=== PATIENT | female | born 1995 | race Caucasian/White ===

== ENCOUNTER 2020-04-28 07:52 | Outpatient (REF) | payer OTHER, MEDICAID, SELFPAY ==
[2020-04-28 08:52] LABS: COVID-19 Test Negative (Negative)
== END 2020-04-28 07:53 | disposition home or self-care (01) ==
LOC: HO.LAB 07:52
PROVIDERS: PCP Physician Assistant; Visit Provider Internal Medicine
DX: Z20.828 Contact with and (suspected) exposure to other viral communicable diseases (principal)
CPT/HCPCS: 87635; C9803

== ENCOUNTER 2022-02-23 10:04 | Outpatient (REF) | payer OTHER, SELFPAY ==
[2022-02-23 11:33] LABS: Hematocrit 43.8 % (37.0-47.0); Hemoglobin 14.2 g/dl (12.0-16.0); Mean Corpuscular HGB Conc 32.4 g/dl (31.0-35.0); Mean Corpuscular Hemoglobin 29.2 pg (27.0-33.0); Mean Corpuscular Volume 90.1 fL (80.0-98.0); Mean Platelet Volume 9.8 fL (9.4-12.3); Platelet Count 334 X10*3/uL (160-400); Red Blood Count 4.86 X10*6/uL (4.20-5.50); White Blood Count 9.2 X10*3/uL (4.8-10.8)
[2022-02-23 12:15] LABS: Alanine Aminotransferase 9 U/L (0-31); Albumin Level 4.3 g/dL (3.5-5.0); Alkaline Phosphatase 96 U/L (39-117); Anion Gap 14 (12-20); Aspartate Amino Transferase 13 U/L (5-31); Bilirubin Total 0.5 mg/dL (0.0-1.0); Blood Urea Nitrogen 9 mg/dL (9-16); Calcium 9.3 mg/dL (8.4-10.2); Carbon Dioxide 25 mmol/L (22-29); Chloride 105 mmol/L (96-108); Cholesterol 174 mg/dL; Estimated Glomerular Filt Rate > 60; Glucose Fasting 78 mg/dL (60-99); HDL Cholesterol 49 mg/dL; LDL Cholesterol Calculated 113 mg/dl; Potassium 3.9 mmol/L (3.3-5.1); Sodium 140 mmol/L (135-145); Total Protein 7.4 g/dL (6.5-8.0); Triglycerides 61 mg/dL
[2022-02-28 22:16] LABS: TS Negative Control Passed; TS Panel A 1; TS Panel B 0; TS Positive Control Passed; TSpotTB Negative (Negative)
== END 2022-02-23 10:05 | disposition home or self-care (01) ==
LOC: HO.WFDLDS 10:04
PROVIDERS: Visit Provider Hospitalist
DX: Z00.00 Encounter for general adult medical examination without abnormal findings (principal); Z11.1 Encounter for screening for respiratory tuberculosis
CPT/HCPCS: 36415; 80053; 80061; 84443; 85027; 86481; 86787

== ENCOUNTER 2023-04-26 07:47 | Outpatient (AMB) | payer OTHER, MEDICAID, SELFPAY ==
[2023-04-26 07:52] VITALS: BP 102/62; PULSE 75; O2SAT 98; BMI 23.6
--- NOTE | 2023-04-26 07:52 | A.OFFPC_ITS ---
Vital Signs 04/26/23 07:52 Height 5 ft 8 in Weight 155 lb BMI 23.6 BP 102/62 Blood Pressure Location Lt brachial Position Sitting Pulse 75 Pulse Source Pulse Oximeter Pulse Oximetry (%) 98 Oxygen Delivery Method Room Air Intake Visit Reasons: transfer care back to [facility] Allergies No Known Allergies Allergy (Verified 04/26/23 08:08) Medication List - Last Reconciled 04/26/23 by Fredrick Padilla PA-C No Known Home Meds Tobacco use date assessed: 04/26/23 Dental Screening Dental Screen Date: 04/26/23 Did you have a dental visit in the last 12 months?: Yes Did you have a dental problem in the last 6 months where you did not have access to dental care?: No Was dental information given to patient?: Patient has dentist HPI transfer care back to [facility] HPI Details Patient is a 27 year female here today for a transfer care visit. Patient has a past medical history significant for occasional migraines. Concern--> no concerns today- does mention constipation which has been existing chronic issue. 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 She did a baby in 2020 [facility] Surgical History No pertinent past surgical history Family History Father No problems noted. 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 1. Little interest or pleasure in doing things: not at all 2. Feeling down, depressed, or hopeless: not at all 3. Trouble falling or staying asleep, or sleeping too much: not at all 4. Feeling tired or having little energy: not at all 5. Poor appetite or overeating: not at all 6. Feeling bad about yourself - or that you are a failure or have let yourself or your family down: not at all 7. Trouble concentrating on things, such as reading the newspaper or watching television: not at all 8. Moving or speaking so slowly that other people could have noticed. Or the opposite - being so fidgety or restless that you have been moving around a lot more than usual: not at all 9. Thoughts that you would be better off or of hurting yourself in some way: not at all Total score: 0 Depression Screening Interpretation: Negative Depression Screening Done: Yes 69579 - PHQ-9 Billing: Yes Source: Developed by Drs. Kelechi Ibrahim, Maya Fritz, Kennedy Sue and colleagues, with an educational africa from [employer]. Thrive Questionnaire Date Thrive assessed: 04/26/23 I am a: Patient What is your living situation today?: I have a steady place to live Within the past 12 months, did the food you bought not last and you didn't have the money to get more?: Never true Within the past 12 months, did you worry whether your food would run out before you got money to buy more?: Never true Do you have trouble paying for medicines?: No Do you have trouble getting transportation to medical appointments?: No Do you have trouble paying your heating and electricity bill?: No Do you have trouble taking care of your child, family member or friend?: No Do you have trouble with day-to-day activities such as bathing, preparing meals, shopping, managing finances, etc.?: No Are you currently unemployed and looking for a job?: No Are you interested in more education?: No Currently or been in a relationship where the following occur: no concerns reported AUDIT C Alcohol Use Questionnaire (AUDIT-C) 1. How often do you have a drink containing alcohol?: 2-4 times a month 2. How many drinks containing alcohol do you have on a typical day when you are drinking?: 3 or 4 3. How often do you have six or more drinks on one occasion?: Never Total Score: 3 EMILEE-7 AMB Questionnaire EMILEE-7 Date EMILEE - 7 assessed: 04/26/23 Feeling nervous, anxious, or on edge: 3 = Nearly every day Not being able to stop or control worryin = Nearly every day Worrying too much about different things: 3 = Nearly every day Trouble relaxin = Several days Being so restless that it is hard to sit still: 0 = Not at all Becoming easily annoyed or irritable: 0 = Not at all Feeling afraid as if something awful might happen: 1 = Several days Total EMILEE-7 score (0-4 normal; 5-9 mild; 10-14 moderate; 15-21 severe): 11 Source: Developed by Drs. Kelechi Ibrahim, Maya Fritz, Kennedy Sue and colleagues, with an educational africa from [employer]. EMILEE-7 Assessment Billing EMILEE-7 Assessment Tool: EMILEE-7 Assessment 35391 Review of Systems Const Denies headache(s) Eyes Denies loss of vision ENT Denies vertigo, Denies dizziness, Denies headache(s) and Denies sore throat Card Denies chest pain, Denies leg edema and Denies lightheadedness Resp Denies cough, Denies hemoptysis and Denies wheezing GI Denies abdominal pain, Denies melena, Denies constipation, Denies diarrhea and Denies vomiting Denies urinary frequency, Denies dysuria and Denies urinary urgency Musc Denies arthralgias, Denies joint swelling, Denies numbness and Denies tingling Neuro Denies Abnormal speech present, Denies behavioral changes, Denies vertigo, Denies dizziness, Denies headache(s), Denies loss of vision, Denies memory loss, Denies numbness and Denies tingling Psych Denies anxiety, Denies behavioral changes, Denies depression, Denies memory loss and Denies panic attacks Royal/Lymph Denies easy bleeding and Denies easy bruising Aller/Immun Denies wheezing Physical exam (Primary Care) Vital Signs: Last Vital Signs Pulse 75 04/26/23 07:52 BP 102/62 04/26/23 07:52 Pulse Ox 98 04/26/23 07:52 Oxygen Delivery Method Room Air 04/26/23 07:52 BMI result Body Mass Index 23.6 Tobacco/Smoking Status: Tobacco use Status Tobacco use date assessed 04/26/23 04/26/23 08:03 Patient Tobacco Use Status Never used Tobacco 04/26/23 08:03 e-Cigarette/Vaping Use Never Used 04/26/23 08:03 PHQ-9: PHQ-9 Score PHQ-9: Total score 0 04/26/23 08:03 Depression Screening Interpretation: Negative Thrive Assessment: Date of Thrive Assessment Date Thrive assessed 04/26/23 04/26/23 08:03 Currently or been in a relationship where the following occur: no concerns reported Const General: healthy appearing, no acute distress, alert and awake Nutritional Appearance: well nourished Orientation/consciousness: oriented to person, oriented to place and oriented to time HENMT Ears: TM's normal bilaterally General nose exam: Normal nasal mucous membranes and turbinates present Eyes Conjunctivae: conjunctivae normal Sclerae: sclerae normal Pupils: Equal, round and reactive pupils present Neck Neck: Yes no lymphadenopathy and Yes no JVD Thyroid: Thyroid normal Carotids: no bruits Resp Effort & Inspection: normal respiratory effort and not tachypneic Auscultation: no crackles, no rales, no rhonchi and no wheezes Cardio Rate: regular rate Rhythm: regular rhythm Heart sounds: no murmurs and normal S1 and S2 GI Palpation (GI): Soft to palpation, nontender, no hepatomegaly and no splenomegaly Auscultation: normal bowel sounds Skin General skin exam: no rashes or lesions noted and dry skin Neuro General: oriented to person, oriented to place and oriented to time Cranial nerves: Yes Equal, round and reactive pupils present Speech: No Abnormal speech present Gait exam (Neuro): Normal gait present Motor exam (neuro): no tremor noted Extrem Right upper extremity: full ROM Left upper extremity: full ROM Right lower extremity: full ROM; no edema Left lower extremity: full ROM; no edema Psych Mental Status: mental status grossly normal Speech and movement: Normal speech and movement present Affect: normal affect Attitude: cooperative Thought process: Normal thought process present Office Procedures Flu Questionnaire Does the patient have a severe egg allergy?: No Does the patient have severe life threatening allergies?: No Does the patient have a fever or illness today?: No Has the patient ever had Guillain-[place] Syndrome?: No Has the patient ever had any past reaction to a flu shot?: No Immunizations flu vacc [id number] 6mos up(PF) 60 mcg(15 mcgx4)/0.5 mL IM syringe Performing Provider: Fredrick Padilla PA-C [facility] Administered by: Miryam Spencer CMA on 04/26/23 08:05 Dose Route Admin Location Dispensed Lot Number Expiration Date NDC Bowling Ball Marker 0.5 mL IM Left Deltoid 0.5 mL [id number] 12/17/23 [id number] [employer] VIS Given Date VIS Provided VIS Publication Date 04/26/23 Single Vaccine 21 Eligibility Eligibility Date Funding Source Not VFC Eligible 04/26/23 Private Assessment and Plan Assessment & Plan (1) Constipation: Code(s): K59.00 - Constipation, unspecified Qualifiers: Constipation type: other constipation type Qualified Code(s): K59.09 - Other constipation Plan: Does report she chronically suffers with constipation. Advised on increasing her fluids and fiber in her diet and she understands. [place] her prescription stool softener laxatives though she declines at this time. (2) Screening for diabetes mellitus (DM): Code(s): Z13.1 - Encounter for screening for diabetes mellitus (3) EMILEE (generalized anxiety disorder): Code(s): F41.1 - Generalized anxiety disorder Plan: Patient's EMILEE-7 score positive moderate anxiety . She is interested in starting medication on a daily basis to help reduce her anxiety. Not interested in mental health therapy at this time. Also having trouble sleeping thus she is willing to try hydroxyzine on an as-needed basis. Orders: Orders Influenza [id number] Immunization Today Z23 - Encounter for immunization Comprehensive [place]. Panel Fast Today Z13.1 - Encounter for screening for diabetes mellitus Complete Blood Count no Diff Today R51.9 - Headache, unspecified Medications: New hydroxyzine HCl 10 mg PO BEDTIME PRN 15 tabs 0RF sleep 15 days F41.1 - Gene ralized anxiety disorder, F41.9 - Anxiety disorder, unspecified sertraline 25 mg PO DAILY 30 tabs 3RF 30 days F41.1 - Generalized anxiety disorder Coding Level of Care Code Est Pt Level 4 (76670) Diagnoses Other constipation K59.09 Constipation type: other constipation type Screening for diabetes mellitus (DM) Z13.1 EMILEE (generalized anxiety disorder) F41.1 Additional Codes EMILEE-7 Assessment Billing - EMILEE-7 Assessment Tool: EMILEE-7 Assessment 05677 ([id number])
== END 2023-04-26 08:24 | disposition home or self-care (01) ==
PROVIDERS: PCP Hospitalist; Visit Provider Physician Assistant
DX: K59.09 Other constipation (principal); Z13.1 Encounter for screening for diabetes mellitus; F41.1 Generalized anxiety disorder; Z23 Encounter for immunization
CPT/HCPCS: 90471; 90686; 99214

== ENCOUNTER 2023-05-08 17:06 | Outpatient (REF) | payer OTHER, SELFPAY ==
[2023-05-08 17:37] LABS: Appearance Urine Clear; Color Urine Orange; Glucose Urine UA 250 mg/dL (Negative); Leukocyte Esterase Urine Moderate (2+) (Negative); Nitrite Urine Positive (Negative); Specific Gravity - Urine 1.015 (1.005-1.025); UMIC TRIGGER UACC YES; Urine Blood Trace (Negative); Urine Ketones Trace mg/dL (Negative); Urine Protein 100 (2+) mg/dL (Neg-Trace)
[2023-05-08 17:41] LABS: Bacteria Urine 4+ (None Seen); Hyaline Casts Urine 0-2 /LPF (0-2); UACC Culture Trigger YES; WBC Urine 21-50 /HPF (0-5)
== END 2023-05-08 17:07 | disposition home or self-care (01) ==
LOC: HO.LAB 17:06
PROVIDERS: Visit Provider Physician Assistant
DX: R30.0 Dysuria (principal)
CPT/HCPCS: 81001; 87070; 87086; 87088; 87147; 87186

== ENCOUNTER 2023-06-01 21:17 | Emergency (ER) | payer OTHER, MEDICAID, SELFPAY ==
--- NOTE | 2023-06-01 | ECG_ITS ---
Test Reason : SYNCOPE Blood Pressure : / mmHG Vent. Rate : 069 BPM Atrial Rate : 069 BPM P-R Int : 138 ms QRS Dur : 096 ms QT Int : 384 ms P-R-T Axes : 069 -26 070 degrees QTc Int : 411 ms Normal sinus rhythm Incomplete right bundle branch block Nonspecific T wave abnormality Abnormal ECG When compared with ECG of 10-MAR-2020 15:11, Incomplete right bundle branch block is now Present Nonspecific T wave abnormality now evident in Anterior leads Referred By: Generic ED Physician Electronically Signed By:Mateo Oliveira
--- NOTE | ~2023-06-01 | CT_ITS ---
EXAMINATION: CT head/brain wo IV con CLINICAL INFORMATION: Reason for Exam fall, loc COMPARISON: None. TECHNIQUE: Contiguous axial imaging was performed from the skull base to vertex without intravenous contrast. Sagittal and coronal reformatted images were obtained. This CT examination was performed using dose optimization techniques as appropriate, variously including the following: * Automated exposure control * Adjustment of mA and/or kV according to patient size (this includes techniques or standardized protocols for targeted exams where dose is matched to indication/reason for exam; i.e. extremities or head) Use of iterative reconstruction technique DLP: 672.36 mGy-cm FINDINGS: No acute osseous or soft tissue abnormality. The mastoid air cells and visualized portions of the paranasal sinuses are well aerated. There is no evidence of acute intracranial hemorrhage or territorial infarction. No abnormal mass effect or midline shift is seen. Damon to white matter differentiation is well preserved. No extra-axial fluid collections are identified. No hydrocephalus. No significant volume loss. There is no abnormal attenuation within the brain parenchyma. CT/CT head/brain wo IV con IMPRESSION: No acute intracranial abnormality including hemorrhage, mass effect, hydrocephalus, or acute territorial edematous infarction.
[2023-06-01 21:27] VITALS: BP 125/70; PULSE 89; O2SAT 100
[2023-06-01 21:28] VITALS: BP 122/71; PULSE 79; RESP 18; TEMP 36.7; O2SAT 99; BMI 21.3
[2023-06-01 21:51] LABS: MANUAL DIFF FLAG NO
[2023-06-01 21:52] LABS: Basophils Percent Auto 0.3 % (0-2); Eosinophils Absolute Auto 0.4 X10*3/uL (0.0-0.4); Eosinophils Percent Auto 4.1 % (0-4); Hemoglobin 13.9 g/dl (12.0-16.0); Imm Gran Abs Auto 0.02 X10*3/uL (0.00-0.03); Imm Gran Pct Auto 0.2 % (0.0-0.4); Lymphocytes Absolute Auto 2.8 X10*3/uL (1.2-4.9); Lymphocytes Percent Auto 30.3 % (20-40); Mean Corpuscular HGB Conc 33.1 g/dl (31.0-35.0); Mean Corpuscular Hemoglobin 29.8 pg (27.0-33.0); Mean Corpuscular Volume 90.1 fL (80.0-98.0); Mean Platelet Volume 9.5 fL (9.4-12.3); Monocytes Absolute Auto 0.6 X10*3/uL (0.1-1.2); Neutrophils Absolute Auto 5.5 x10*3/uL (2.0-8.3); Neutrophils Percent Auto 59.1 % (45-73); Platelet Count 313 X10*3/uL (160-400); Red Blood Count 4.66 X10*6/uL (4.20-5.50); Red Cell Distribution Width 12.4 % (11.0-16.0); White Blood Count 9.3 X10*3/uL (4.8-10.8)
[2023-06-01 22:05] LABS: Alanine Aminotransferase 8 U/L (0-31); Albumin Level 4.4 g/dL (3.5-5.0); Alkaline Phosphatase 53 U/L (39-117); Anion Gap 13 (12-20); Aspartate Amino Transferase 13 U/L (5-31); Bilirubin Total 0.2 mg/dL (0.0-1.0); Blood Urea Nitrogen 17 mg/dL (9-16); Calcium 9.9 mg/dL (8.4-10.2); Carbon Dioxide 27 mmol/L (22-29); Chloride 104 mmol/L (96-108); Creatinine Clr Calc Pharmacy 100.8; Estimated Glomerular Filt Rate > 60; Glucose Random 107 mg/dL (60-115); Potassium 3.9 mmol/L (3.3-5.1); Sodium 140 mmol/L (135-145); Total Protein 7.6 g/dL (6.5-8.0)
[2023-06-01 23:46] VITALS: BP 102/47; PULSE 67; RESP 16; TEMP 36.8; O2SAT 97
[2023-06-01 23:47] VITALS: BP 102/47; PULSE 65
[2023-06-01 23:48] VITALS: BP 109/64; BP 110/59; PULSE 75; PULSE 89
--- NOTE | 2023-06-02 01:54 | ED.SYNCOPE ---
HPI - Syncope General Chief Complaint: Syncope Stated Complaint: N/V, HEADACHE, NEAR SYNCOPAL EPISODE Time Seen by Provider: 06/02/23 01:46 Source: patient Mode of arrival: ambulatory Limitations: no limitations History of Present Illness HPI narrative: Patient comes to the emergency room complaining of a syncopal episode. Patient states that she stood up from standing, started walking and then passed out. Patient states that she has never had syncopal episodes in the past. Patient states she has not had any chest pain or shortness of breath. Patient states that earlier today, she had headache and eye pain. Since she has been here in the emergency room, both headache and eye pain resolved, lesion normal per patient. Patient denies any other injuries. Related Data Previous Rx's Medication Instructions Recorded hydroxyzine HCl 10 mg tablet 10 mg PO BEDTIME PRN sleep 15 days 04/26/23 #15 tabs sertraline 25 mg tablet 25 mg PO DAILY 30 days #30 tabs 04/26/23 amoxicillin 875 mg tablet 875 mg PO BID 5 days #10 tabs 05/09/23 sulfamethoxazole 800 1 tab PO BID 5 days #10 tabs 05/10/23 mg-trimethoprim 160 mg tablet (Bactrim DS) Allergies Allergy/AdvReac Type Severity Reaction Status Date / Time No Known Allergies Allergy Verified 04/26/23 08:08 Review of Systems Review of Systems: Constitutional : No Weight loss, No Fever, No Chills, No Night Sweats, No Fatigue, No Malaise ENT/Mouth : No Hearing loss, No Ear Pain, No Nasal Congestion, No Sinus Pain, No Hoarseness, No sore throat, No Rhinorrhea, No Swallowing Difficulty Eyes: No Eye Pain, No Swelling, No Redness, No Foreign Body, No Discharge, No Vision Changes Cardiovascular : No Chest Pain, No SOB, No Dyspnea on Exertion, No Orthopnea, No Edema, No Palpitations Respiratory : No Cough, No Sputum, No Wheezing, No Smoke Exposure, No Dyspnea Gastrointestinal : No Nausea, No Vomiting, No Diarrhea, No Constipation, No abdominal Pain, No Hematochezia, No Melena Genitourinary : no irregular bleeding, No Dysuria, No Urinary Frequency, No Hematuria, No Urinary Incontinence, No Urgency, No Flank Pain, No Urinary Flow Changes, No Hesitancy Musculoskeletal : No joint pain, No Myalgias, No Joint Swelling Skin : No Skin Lesions, No rash Neuro : No Weakness, No Numbness, No Paresthesias, burning of 1 episode of loss of consciousness, complaining of headache and eye pain that self-resolved. Psych : No Anxiety/Panic, No Depression, No SI/HI/AH/VH, No Social Issues, Heme/Lymph: No Bruising, No Bleeding,No Lymphadenopathy Endocrine : No Polyuria, No Polydipsia, No Temperature Intolerance [facility] Past Medical History Surgical History No pertinent past surgical history Family History Family History Father No problems noted. 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 Oriented X3. No acute distress. Eyes: Pupils equal, round and reactive to light. ENT: Pharynx normal. Neck: Normal inspection. Neck supple. No lymph nodes noted. No crepitus CVS: Normal heart rate and rhythm. Pulses normal. Normal S1 and S2 Respiratory: No respiratory distress. Breath sounds normal. No Wheezing. No rales Abdomen: Soft and nontender. No rigidity. No distention. Skin: Skin warm and dry. Normal skin color. Normal skin turgor. Extremities: No lower extremity edema. No Lacerations. No Rash Neuro: Oriented X 3. No motor deficit. No sensory deficit. Moving all extremities. No slurred speech. CN 2 through 12 grossly intact Psych: calm, cooperative, normal affect Medical Decision Making Medical Decision Making [facility] Narrative: -my interpretation of EKG: Normal sinus rhythm, heart rate 69, no ST segment depression or elevation, no T-wave inversion, QTC 411 -orthostatic vitals negative -my interpretation of his CT: No intracranial bleed, no obvious abnormality -my interpretation of labs: Normal white blood cell count, normal chemistry, D-dimer negative, negative for ETOH, negative troponin -patient did not provide a urine sample, drugs of abuse pending -patient did not want to wait any further and requested to be discharged. -patient ambulated to the CT scan and to the bathroom without assistance, steady gait, asymptomatic Differential Diagnosis Differential Diagnoses: The differential diagnosis associated with the presentation includes (PE, ACS, , drugs of abuse, orthostatic hypertension, intracranial bleed) Admission/Observation Consideration of admission/observation: Escalation of care including admission/observation considered Lab Data [facility] Lab Attestation statement: I reviewed the patient's lab results. 06/01/23 21:45 06/01/23 21:45 Labs: Lab Results 06/01/23 06/02/23 06/02/23 Range/Units 21:45 02:01 02:01 WBC 9.3 (4.8-10.8) X10*3/uL RBC 4.66 (4.20-5.50) X10*6/uL Hgb 13.9 (12.0-16.0) g/dl Hct 42.0 (37.0-47.0) % MCV 90.1 (80.0-98.0) fL MCH 29.8 (27.0-33.0) pg MCHC 33.1 (31.0-35.0) g/dl RDW 12.4 (11.0-16.0) % Plt Count 313 (160-400) X10*3/uL MPV 9.5 (9.4-12.3) fL Immature Gran % (Auto) 0.2 (0.0-0.4) % Neut % (Auto) 59.1 (45-73) % Lymph % (Auto) 30.3 (20-40) % Wharton % (Auto) 6.0 (2-11) % Eos % (Auto) 4.1 H (0-4) % Baso % (Auto) 0.3 (0-2) % Lymph # (Auto) 2.8 (1.2-4.9) X10*3/uL Wharton # (Auto) 0.6 (0.1-1.2) X10*3/uL Eos # (Auto) 0.4 (0.0-0.4) X10*3/uL Baso # (Auto) 0.0 (0.0-0.2) X10*3/uL Abs Immat Gran (auto) 0.02 (0.00-0.03) X10*3/uL Absolute Neuts (auto) 5.5 (2.0-8.3) x10*3/uL Absolute Nucleated RBC 0.000 (0.0-0.012) X10*3/uL Nucleated RBC % (auto) 0.0 (0.0-0.2) /100WBC PT 11.5 (11.1-13.3) SEC INR 0.9 (0.9-1.1) D-Dimer High Sensitivty < 150 Cancelled NG/ML Sodium 140 (135-145) mmol/L Potassium 3.9 (3.3-5.1) mmol/L Chloride 104 (96-108) mmol/L Carbon Dioxide 27 (22-29) mmol/L Anion Gap 13 (12-20) BUN 17 H (9-16) mg/dL Creatinine 0.84 (0.5-1.4) mg/dL Estim Creat Clear Calc 100.8 Estimated GFR > 60 Random Glucose 107 (60-115) mg/dL Calcium 9.9 D (8.4-10.2) mg/dL Total Bilirubin 0.2 (0.0-1.0) mg/dL AST 13 (5-31) U/L ALT 8 (0-31) U/L Alkaline Phosphatase 53 (39-117) U/L Troponin I High Sens < 2.7 (<3.5-17.0) ng/L Total Protein 7.6 (6.5-8.0) g/dL Albumin 4.4 (3.5-5.0) g/dL Beta HCG, Quant < 2 mIU/mL Urine Opiates Screen (Not Detect) Urine Fentanyl Screen (Not Detect) Ur Barbiturates Screen (Not Detect) Ur Phencyclidine Scrn (Not Detect) Ur Amphetamines Screen (Not Detect) U Benzodiazepines Scrn (Not Detect) Urine Cocaine Screen (Not Detect) U Marijuana (THC) Screen (Not Detect) Ethyl Alcohol < 10 mg/dL 06/02/23 Range/Units 03:00 WBC (4.8-10.8) X10*3/uL RBC (4.20-5.50) X10*6/uL Hgb (12.0-16.0) g/dl Hct (37.0-47.0) % MCV (80.0-98.0) fL MCH (27.0-33.0) pg MCHC (31.0-35.0) g/dl RDW (11.0-16.0) % Plt Count (160-400) X10*3/uL MPV (9.4-12.3) fL Immature Gran % (Auto) (0.0-0.4) % Neut % (Auto) (45-73) % Lymph % (Auto) (20-40) % Wharton % (Auto) (2-11) % Eos % (Auto) (0-4) % Baso % (Auto) (0-2) % Lymph # (Auto) (1.2-4.9) X10*3/uL [place]arton # (Auto) (0.1-1.2) X10*3/uL Eos # (Auto) (0.0-0.4) X10*3/uL Baso # (Auto) (0.0-0.2) X10*3/uL Abs Immat Gran (auto) (0.00-0.03) X10*3/uL Absolute Neuts (auto) (2.0-8.3) x10*3/uL Absolute Nucleated RBC (0.0-0.012) X10*3/uL Nucleated RBC % (auto) (0.0-0.2) /100WBC PT (11.1-13.3) SEC INR (0.9-1.1) D-Dimer High Sensitivty NG/ML Sodium (135-145) mmol/L Potassium (3.3-5.1) mmol/L Chloride (96-108) mmol/L Carbon Dioxide (22-29) mmol/L Anion Gap (12-20) BUN (9-16) mg/dL Creatinine (0.5-1.4) mg/dL Estim Creat Clear Calc Estimated GFR Random Glucose (60-115) mg/dL Calcium (8.4-10.2) mg/dL Total Bilirubin (0.0-1.0) mg/dL AST (5-31) U/L ALT (0-31) U/L Alkaline Phosphatase (39-117) U/L Troponin I High Sens (<3.5-17.0) ng/L Total Protein (6.5-8.0) g/dL Albumin (3.5-5.0) g/dL Beta HCG, Quant mIU/mL Urine Opiates Screen Not Detected (Not Detect) Urine Fentanyl Screen Not Detected (Not Detect) Ur Barbiturates Screen Not Detected (Not Detect) Ur Phencyclidine Scrn Not Detected (Not Detect) Ur Amphetamines Screen Not Detected (Not Detect) U Benzodiazepines Scrn Not Detected (Not Detect) Urine Cocaine Screen Not Detected (Not Detect) U Marijuana (THC) Screen Not Detected (Not Detect) Ethyl Alcohol mg/dL Independent Interpretation I performed an independent interpretation of an: CT Scan Radiology Impression Discussion of test interpretation with radiology: I have reviewed the radiologist's reading. Radiologist Impression: FINDINGS: No acute osseous or soft tissue abnormality. The mastoid air cells and visualized portions of the paranasal sinuses are well aerated. There is no evidence of acute intracranial hemorrhage or territorial infarction. No abnormal mass effect or midline shift is seen. Damon to white matter differentiation is well preserved. No extra-axial fluid collections are identified. No hydrocephalus. No significant volume loss. There is no abnormal attenuation within the brain parenchyma. CT/CT head/brain wo IV con IMPRESSION: No acute intracranial abnormality including hemorrhage, mass effect, hydrocephalus, or acute territorial edematous infarction. Critical Care Time Critical Care Time Critical Care Time: Yes Total Critical Care Time: 30 Attestation: I have personally provided critical care time. Time includes review of lab data, radiology results, discussion with consultants, and monitoring for potential decompensation. Intervention performed as documented. Discharge Plan Discharge Clinical Impression: Syncope Patient Disposition: Home, Self-Care Instructions: Syncope (ED) Additional Instructions: Please follow-up with your primary care physician tomorrow. If you continue having symptoms, It is possible that you may need to wear Holter monitor for further evaluation, which can be done through your primary care physician. If you have any worsening or new symptoms, please return to the emergency room or call 911 Prescriptions: No Action amoxicillin 875 mg tablet 875 mg PO BID 5 Days Qty: 10 0RF sulfamethoxazole-trimethoprim [Bactrim DS] 800-160 mg tablet 1 tab PO BID 5 Days Qty: 10 0RF sertraline 25 mg tablet 25 mg PO DAILY 30 Days Qty: 30 3RF hydroxyzine HCl 10 mg tablet 10 mg PO BEDTIME PRN (Reason: sleep) 15 Days Qty: 15 0RF
[2023-06-02 02:15] LABS: INTERNATIONAL NORM RATIO 0.9 (0.9-1.1); Prothrombin Time 11.5 SEC (11.1-13.3)
[2023-06-02 02:19] LABS: D Dimer High Sensitivity < 150 NG/ML
[2023-06-02 02:43] LABS: Ethanol < 10 mg/dL
[2023-06-02 02:46] LABS: HCG Quantitative < 2 mIU/mL
[2023-06-02 02:54] LABS: Troponin-I High Sensitivity < 2.7 ng/L (<3.5-17.0)
[2023-06-02 03:01] VITALS: BP 103/68; PULSE 79; RESP 16; O2SAT 98
[2023-06-02 03:17] LABS: Amphetamine Screen Urine Not Detected (Not Detect); Barbiturates, Urine Not Detected (Not Detect); Benzodiazepines Screen Urine Not Detected (Not Detect); Cannabinoid Screen Urine Not Detected (Not Detect); Cocaine Screen Urine Not Detected (Not Detect); Fentanyl, urine Not Detected (Not Detect); Opiate Screen Urine Not Detected (Not Detect); Phencyclidine Screen Urine Not Detected (Not Detect)
--- NOTE | 2023-06-02 03:44 | PC.NURSE ---
Pt tolerated PO fluids and crackers given. Denies any nausea.
[2023-06-02 03:50] LABS: Appearance Urine Clear; Color Urine Yellow; Glucose Urine UA Negative (Negative); Leukocyte Esterase Urine Negative (Negative); Nitrite Urine Negative (Negative); PH 5.5 (5.0-9.0); Specific Gravity - Urine 1.025 (1.005-1.025); UMIC TRIGGER UACC YES; Urine Blood Trace (Negative); Urine Ketones 80 mg/dL (Negative); Urine Protein Negative (Neg-Trace)
[2023-06-02 03:53] LABS: Bacteria Urine None Seen (None Seen); Hyaline Casts Urine 0-2 /LPF (0-2); RBC Urine 0-2 /HPF (0-2); Squamous Epithelial Cell Urine 0-2 /HPF (0-2); WBC Urine 0-5 /HPF (0-5)
== END 2023-06-02 03:50 | disposition home or self-care (01) ==
PROVIDERS: Emergency Provider Emergency Medicine; PCP Physician Assistant
DX: R55 Syncope and collapse (principal); R51.9 Headache, unspecified; I45.10 Unspecified right bundle-branch block; Z79.899 Other long term (current) drug therapy
CPT/HCPCS: 36415; 70450; 80053; 80307; 81001; 84484; 84702; 85025; 85379; 85610; 93005; 99284; 99285

== ENCOUNTER → 2023-06-01 22:54 | Outpatient (BNV) | payer OTHER, SELFPAY | PROVIDERS: Emergency Provider Emergency Medicine; PCP Physician Assistant; Visit Provider Internal Medicine Cardiovascular Disease | DX: R94.31 Abnormal electrocardiogram [ECG] [EKG] (principal) | CPT/HCPCS: 93010 ==

== ENCOUNTER 2023-07-17 07:40 | Outpatient (REF) | payer OTHER, SELFPAY ==
[2023-07-17 08:16] LABS: Hematocrit 39.9 % (37.0-47.0); Hemoglobin 13.3 g/dl (12.0-16.0); Mean Corpuscular HGB Conc 33.3 g/dl (31.0-35.0); Mean Corpuscular Hemoglobin 30.1 pg (27.0-33.0); Mean Corpuscular Volume 90.3 fL (80.0-98.0); Mean Platelet Volume 9.7 fL (9.4-12.3); Platelet Count 293 X10*3/uL (160-400); Red Blood Count 4.42 X10*6/uL (4.20-5.50); Red Cell Distribution Width 12.4 % (11.0-16.0); White Blood Count 8.2 X10*3/uL (4.8-10.8)
[2023-07-17 08:58] LABS: Alanine Aminotransferase 13 U/L (0-31); Albumin Level 4.2 g/dL (3.5-5.0); Alkaline Phosphatase 48 U/L (39-117); Anion Gap 10 (12-20); Aspartate Amino Transferase 16 U/L (5-31); Bilirubin Total 0.4 mg/dL (0.0-1.0); Blood Urea Nitrogen 7 mg/dL (9-16); Calcium 9.2 mg/dL (8.4-10.2); Carbon Dioxide 25 mmol/L (22-29); Chloride 109 mmol/L (96-108); Estimated Glomerular Filt Rate > 60; Glucose Fasting 93 mg/dL (60-99); Potassium 4.2 mmol/L (3.3-5.1); Sodium 140 mmol/L (135-145); Total Protein 7.1 g/dL (6.5-8.0)
[2023-07-17 10:03] LABS: Appearance Urine Clear; Color Urine Yellow; Glucose Urine UA Negative (Negative); Leukocyte Esterase Urine Moderate (2+) (Negative); Nitrite Urine Negative (Negative); PH 6.5 (5.0-9.0); UMIC TRIGGER UACC YES; Urine Blood Negative (Negative); Urine Ketones Negative (Negative); Urine Protein Negative (Neg-Trace)
[2023-07-17 10:09] LABS: Bacteria Urine Trace (None Seen); Hyaline Casts Urine 0-2 /LPF (0-2); RBC Urine 0-2 /HPF (0-2); UACC Culture Trigger YES; WBC Urine >50 /HPF (0-5)
== END 2023-07-17 07:41 | disposition home or self-care (01) ==
LOC: HO.LAB 07:40
PROVIDERS: PCP Physician Assistant; Visit Provider Physician Assistant
DX: Z13.1 Encounter for screening for diabetes mellitus (principal); R51.9 Headache, unspecified; R30.0 Dysuria
CPT/HCPCS: 36415; 80053; 81001; 81003; 85027; 87086; 87147

== ENCOUNTER → 2023-07-26 09:50 | Outpatient (REF) | payer OTHER, SELFPAY ==
--- NOTE | 2023-07-26 09:53 | CA_ITS ---
Transthoracic Echocardiogram Patient (Last, First, Middle): Charline Sheikh, Gender: Female Date of : 1995 Age: 28 Procedure Date: 07/26/2023 Procedure Type: Transthoracic Echocardiogram Location: OP Height: 172.72 cm Weight: 74.84 kg BSA: 1.88 m2 Heart Rate: bpm BP: 98 / 60 mmHg Help Desk Specialist: TO Referring MD: Fredrick Padilla PA-C Symptoms: R55 - Syncope and collapse Study Quality: Fair Conclusions: - The left ventricular systolic function is normal. The calculated ejection fraction is 58% by biplane method. - No obvious valvular pathology seen on this study. Findings Left Ventricle Normal left ventricular cavity size. There is normal left ventricular wall thickness. The left ventricular systolic function is normal. The calculated ejection fraction is 58% by biplane method. There is no evidence of regional wall motion abnormalities. Diastolic function is normal for age. LV peak GLS -20.8% (normal). Right Ventricle Normal right ventricular cavity size. There is low normal right ventricular systolic function. Atria Both atria are normal in size. Aortic Valve There is a normal trileaflet aortic valve. There is no aortic valve stenosis. There is no aortic valve regurgitation. Mitral Valve The mitral valve appears normal. There is no mitral valve regurgitation. There is no mitral valve stenosis. Pulmonic Valve The pulmonic valve is likely normal. Tricuspid Valve There is trace tricuspid valve regurgitation. There is no evidence of pulmonary hypertension. Great Vessels The asc aorta is normal in size. Venous The inferior vena cava is normal in size and collapses greater than 50% with inspiration. Pericardium/Pleural There is no evidence of pericardial effusion. Prior Study Comparison No prior study available for comparison. Recommendations, Care & Conclusions No obvious valvular pathology seen on this study. Measurements 2D Linear Measurements IVSd: 0.92 0.6-0.9/0.6-1.0 cm LVIDd: 4.49 3.9-5.3/4.2-5.9 cm LVIDd Index: 2.39 2.4-3.2/2.2-3.1 cm/m2 LVIDs: 2.83 2.0-3.6 cm LVPWd: 0.60 0.7-1.1 cm LA Diam: 3.00 2.7-3.8/3.0-4.0 cm LAIDs Index: 1.60 1.5-2.3 cm/m2 LV Mass: 131.63 67-162/88-224 g LV Mass Index: 70.01 43-95/49-115 g/m2 LVOT Diam: 2.20 3.0+(-)1.3 cm 2D Systolic Function EF 4C: 58.30 >55% EF 2C: 57.70 >55% EF BiP: 57.70 >55% Mitral Valve MV Pk E: 0.47 MV PK A: 0.28 MV Decel Time: 246.00 E/A: 1.70 E'Lateral: 15.30 E'Medial: 11.70 E/E' Med: 4.00 E/E' Lat: 3.10 PHT: 72.00 MVA PHT: 3.06 Decel [place]: 1.91 Aortic Valve AoV Pk Gt: 1.13 AoV Mn Gt: 0.79 AoV VTI: 0.23 AoV Pk Grad: 5.00 Aov Mn Grad: 3.00 RADU Cont.VTI: 3.06 LVOT LVOT Pk Gt: 0.95 LVOT Mn Gt: 0.63 LVOT VTI: 0.18 LVOT Pk Grad: 4.00 LVOT Mn Grad: 2.00 LVOT Diam: 2.20 LVOT Area: 3.80 Diastolic Function MV Pk E: 0.47 MV Pk A: 0.28 E/A: 1.70 E'Medial: 11.70 E/E' Med: 4.00 E' Laterial: 15.30 E/E' Lat: 3.10 Right Ventricle TAPSE (mm): 16.10 TVS' Gt: 10.70 Tricuspid Valve RA Press: 3.00 Great Vessels Aorta Sinus of Valsalva: 2.65 2.0-3.[address] [place]: 2.28 1.7-3.4 cm Ao Asc: 2.70 2.1-3.4 cm Ao Arch: 2.70 Updated in Other Vendor System with Status of Final Honorio Grover MD electronically signed on 07/27/2023 9:03:20 AM with status of Final
== END ==
LOC: HO.CARD 09:50
PROVIDERS: PCP Physician Assistant; Visit Provider Physician Assistant
DX: R55 Syncope and collapse (principal)
CPT/HCPCS: 93306; 93356

== ENCOUNTER → 2023-07-26 09:53 | Outpatient (BNV) | payer OTHER, SELFPAY | PROVIDERS: PCP Physician Assistant; Visit Provider Internal Medicine | DX: R55 Syncope and collapse (principal) | CPT/HCPCS: 93306 ==

== ENCOUNTER 2023-08-04 13:21 | Outpatient (AMB) | payer OTHER, MEDICAID, SELFPAY ==
--- NOTE | 2023-08-04 13:23 | AM.OFFWIN_ITS ---
Intake Vital Signs 08/04/23 13:28 Height 5 ft 8 in Weight 151 lb BMI 23.0 BP 110/60 Blood Pressure Location Lt brachial Position Sitting Pulse 82 Pulse Source Pulse Oximeter Temp 98.1 F Temp Source Temporal Artery Scan Pulse Oximetry (%) 97 Oxygen Delivery Method Room Air Intake Visit Reasons: EST/headaches/ nausea X3days(lobby masked) Intake Note: pt is here today headache nausea started 3 days ago Patient Tobacco Use Status: Never used Tobacco Allergies No Known Allergies Allergy (Verified 08/04/23 13:27) Do you need a note to return to daycare/school/sports/work: No HPI HPI Comments History of Present Illness Details 28 y/o female who [facility] with c/o headaches and nausea x 3 days now. Reports no h/o Migraine headaches. Denies light or sound sensitivity. Denies vision or hearing changes. Denies any recent injury or trauma to the head. Denies facial drooping or slurred speech. Reports only 4-6 hours of sleep at night, due to racing thoughts. H/o Anxiety and Depression, not taking any medicines. [facility] Surgical History No pertinent past surgical history Family History Father No problems noted. 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 Cognitive needs: No Hearing needs: No Vision needs: Yes Review of Systems Const All systems reviewed & are unremarkable except as noted in HPI and below Physical Exam Vital Signs: Last Vital Signs Temp 98.1 F 08/04/23 13:28 Pulse 82 08/04/23 13:28 BP 110/60 08/04/23 13:28 Pulse Ox 97 08/04/23 13:28 Oxygen Delivery Method Room Air 08/04/23 13:28 BMI result Body Mass Index 23.0 Const General: no acute distress Orientation/consciousness: patient oriented x3 HEENT Head: Yes No palpable skull fracture present, Yes normocephalic and Yes atraumatic Ears: external ears normal and TM's normal bilaterally General nose exam: Normal external nose present and Normal nasal mucous membranes and turbinates present Face and sinus: Yes normal facial exam and Yes sinuses nontender Mouth: oropharynx normal and moist mucous membranes Throat: Yes posterior oropharynx normal Eyes Pupils: Equal, round and reactive pupils present EOM: EOMs intact bilaterally Resp Effort & Inspection: normal respiratory effort Auscultation: clear to auscultation bilaterally Cardio Rate: regular rate Rhythm: regular rhythm Neuro General: patient oriented x3 and gait normal Cranial nerves: Yes Equal, round and reactive pupils present Motor exam (neuro): 5/5 motor strength present throughout Psych Other: Very emotional, crying at times. Assessment & Plan Assessment & Plan (1) Headache: Code(s): R51.9 - Headache, unspecified Qualifiers: Headache chronicity pattern: acute headache Headache type: tension-type Intractability: not intractable Qualified Code(s): G44.209 - Tension-type headache, unspecified, not intractable Plan: - Rest in quite dark room - No brain stimulation - Gingerale for N/V (2) EMILEE (generalized anxiety disorder): Code(s): F41.1 - Generalized anxiety disorder Plan: - Rx'd Hydroxyzine for sleep and anxiety - Advised to f/u with Pysch Orders: Orders SARS-CoV2/FLU/RSV Today R51.9 - Headache, unspecified Medications: New hydroxyzine HCl 50 mg PO BEDTIME 20 tabs 0RF SLEEP AND ANXIETY F41.1 - Generalized anxiety disorder jgdqgif-clozoocniqcfq-mucgvbbl 250-250-65 mg (Excedrin Extra Strength) 2 tabs PO Q6H PRN 30 tabs 0RF HEADACHE R51.9 - Headache, unspecified Coding Level of Care Code Est Pt Level 3 (60377) Diagnoses Acute non intractable tension-type headache G44.209 Headache chronicity pattern: acute headache Headache type: tension-type Intractability: not intractable EMILEE (generalized anxiety disorder) F41.1 Time Spent (min) 15
[2023-08-04 13:28] VITALS: BP 110/60; PULSE 82; TEMP 36.7; O2SAT 97; BMI 23.0
== END 2023-08-04 14:21 | disposition home or self-care (01) ==
PROVIDERS: PCP Physician Assistant; Visit Provider Nurse Practitioner Family
DX: G44.209 Tension-type headache, unspecified, not intractable (principal); F41.1 Generalized anxiety disorder
CPT/HCPCS: 99213

== ENCOUNTER 2023-08-04 16:54 | Outpatient (REF) | payer OTHER, SELFPAY ==
[2023-08-04 17:41] LABS: Influenza A PCR NEGATIVE (Negative); Influenza B PCR NEGATIVE (Negative); Resp Syncy Virus RNA Qual PCR NEGATIVE (Negative); SARS COV2 PCR INHOUSE NEGATIVE (Negative)
== END 2023-08-04 16:55 | disposition home or self-care (01) ==
LOC: HO.LNP 16:54
PROVIDERS: Visit Provider Nurse Practitioner Family
DX: Z11.52 Encounter for screening for COVID-19 (principal); Z20.822 Contact with and (suspected) exposure to COVID-19; R51.9 Headache, unspecified
CPT/HCPCS: 0241U

== ENCOUNTER 2023-08-04 22:13 | Emergency (ER) | payer OTHER, MEDICAID, SELFPAY ==
[2023-08-04 22:28] VITALS: BP 125/85; PULSE 72; RESP 14; TEMP 36.4; O2SAT 97; BMI 23.1
[2023-08-04 22:50] LABS: MANUAL DIFF FLAG NO
[2023-08-04 22:52] LABS: Basophils Percent Auto 0.3 % (0-2); Eosinophils Absolute Auto 0.3 X10*3/uL (0.0-0.4); Eosinophils Percent Auto 2.5 % (0-4); Hematocrit 41.1 % (37.0-47.0); Hemoglobin 13.8 g/dl (12.0-16.0); Imm Gran Abs Auto 0.02 X10*3/uL (0.00-0.03); Imm Gran Pct Auto 0.2 % (0.0-0.4); Mean Corpuscular HGB Conc 33.6 g/dl (31.0-35.0); Mean Corpuscular Hemoglobin 29.9 pg (27.0-33.0); Mean Platelet Volume 9.4 fL (9.4-12.3); Monocytes Absolute Auto 0.8 X10*3/uL (0.1-1.2); Monocytes Percent Auto 7.1 % (2-11); Neutrophils Absolute Auto 6.6 x10*3/uL (2.0-8.3); Neutrophils Percent Auto 61.9 % (45-73); Platelet Count 320 X10*3/uL (160-400); Red Blood Count 4.62 X10*6/uL (4.20-5.50); Red Cell Distribution Width 12.1 % (11.0-16.0); White Blood Count 10.6 X10*3/uL (4.8-10.8)
[2023-08-04 23:05] LABS: Anion Gap 10 (12-20); Blood Urea Nitrogen 10 mg/dL (9-16); Calcium 9.4 mg/dL (8.4-10.2); Carbon Dioxide 25 mmol/L (22-29); Chloride 107 mmol/L (96-108); Creatinine Clr Calc Pharmacy 116.7; Estimated Glomerular Filt Rate > 60; Glucose Random 111 mg/dL (60-115); Potassium 3.6 mmol/L (3.3-5.1); Sodium 138 mmol/L (135-145)
[2023-08-05 00:23] VITALS: BP 116/65; PULSE 66; RESP 16; TEMP 36.7; O2SAT 97
--- NOTE | 2023-08-05 00:33 | ED.HA ---
HPI - Headache General Chief Complaint: Headache Stated Complaint: Migraine, ring in the ear Time Seen by Provider: 08/05/23 00:19 Source: patient Mode of arrival: ambulatory Limitations: no limitations History of Present Illness HPI Narrative: Patient Complaining of headache mostly on the right side with light sensitivity and nausea for last 3 days no history of migraine headaches in the past family history of migraine no fever no chills Related Data Previous Rx's Medication Instructions Recorded lqspamq-khilzlncpeokz-kwqnymml 250 2 tab PO Q6H PRN HEADACHE #30 tabs 08/04/23 mg-250 mg-65 mg tablet (Excedrin Extra Strength) hydroxyzine HCl 50 mg tablet 50 mg PO BEDTIME SLEEP AND ANXIETY 08/04/23 #20 tabs btypgwqixh-hdqggkdfbwdkl-fnqgaxcl 1 tab PO Q6H PRN haeadace #20 tabs 08/05/23 50 mg-325 mg-40 mg tablet ondansetron 4 mg disintegrating 4 mg PO Q6-8H PRN nausea and 08/05/23 tablet vomiting #10 tabs Allergies Allergy/AdvReac Type Severity Reaction Status Date / Time No Known Allergies Allergy Verified 08/04/23 13:27 Review of Systems Review of Systems: Yes all other systems are reviewed and are negative PMFSH Past Medical History Surgical History No pertinent past surgical history Family History Family History Father No problems noted. 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 Oriented X3. No acute distress. Eyes: PERRLA, No Nystagmus light sensitive+ ENT: Pharynx normal. Oral Mucosa moist no temporal artery tenderness Neck: Normal inspection. Neck supple. CVS: Normal heart rate and rhythm. Pulses normal. Respiratory: No respiratory distress. Equal air entry bilateral, Abdomen: Soft and nontender. Bowel sounds are present, Skin: Skin warm and dry. Normal skin color. Normal skin turgor. Neuro: Oriented X 3. Medications Administered Discontinued Medications Generic Name Dose Route Start Last Admin Trade Name Freq PRN Reason Stop Dose Admin Acetaminophen/Butalbital/Caffeine 1 tab 08/05/23 00:37 08/05/23 00:48 Butalb/Acetamin/Caff 50/325/40 Tablet PO 08/05/23 00:38 1 tab ONCE ONE Administration Metoclopramide HCl 10 mg 08/05/23 00:37 08/05/23 00:48 Metoclopramide Hcl 10 Mg Tablet PO 08/05/23 00:38 10 mg ONCE ONE Administration Medical Decision Making Medical Decision Making [facility] Narrative: Clinic with migraine headache does not want to take Imitrex as she gets palpitation will try Fioricet and Reglan Lab Data [facility] Lab Attestation statement: I reviewed the patient's lab results. 08/04/23 22:45 08/04/23 22:45 Labs: Lab Results 08/04/23 Range/Units 22:45 WBC 10.6 (4.8-10.8) X10*3/uL RBC 4.62 (4.20-5.50) X10*6/uL Hgb 13.8 (12.0-16.0) g/dl Hct 41.1 (37.0-47.0) % MCV 89.0 (80.0-98.0) fL MCH 29.9 (27.0-33.0) pg MCHC 33.6 (31.0-35.0) g/dl RDW 12.1 (11.0-16.0) % Plt Count 320 (160-400) X10*3/uL MPV 9.4 (9.4-12.3) fL Immature Gran % (Auto) 0.2 (0.0-0.4) % Neut % (Auto) 61.9 (45-73) % Lymph % (Auto) 28.0 (20-40) % [place] % (Auto) 7.1 (2-11) % Eos % (Auto) 2.5 (0-4) % Baso % (Auto) 0.3 (0-2) % Lymph # (Auto) 3.0 (1.2-4.9) X10*3/uL [place] # (Auto) 0.8 (0.1-1.2) X10*3/uL Eos # (Auto) 0.3 (0.0-0.4) X10*3/uL Baso # (Auto) 0.0 (0.0-0.2) X10*3/uL Abs Immat Gran (auto) 0.02 (0.00-0.03) X10*3/uL Absolute Neuts (auto) 6.6 (2.0-8.3) x10*3/uL Absolute Nucleated RBC 0.000 (0.0-0.012) X10*3/uL Nucleated RBC % (auto) 0.0 (0.0-0.2) /100WBC Sodium 138 (135-145) mmol/L Potassium 3.6 (3.3-5.1) mmol/L Chloride 107 (96-108) mmol/L Carbon Dioxide 25 (22-29) mmol/L Anion Gap 10 L (12-20) BUN 10 (9-16) mg/dL Creatinine 0.73 (0.5-1.4) mg/dL Estim Creat Clear Calc 116.7 Estimated GFR > 60 Random Glucose 111 (60-115) mg/dL Calcium 9.4 (8.4-10.2) mg/dL Discharge Plan Discharge Clinical Impression: Migraine Patient Disposition: Home, Self-Care Instructions: Migraine Headache (ED) Additional Instructions: Likely you have migraine headache Medication for headache as prescribed Nausea medication Prescriptions: New ondansetron 4 mg tablet,disintegrating 4 mg PO Q6-8H PRN (Reason: nausea and vomiting) Qty: 10 0RF zuyeirjrpi-kzljpxmawfdzq-pxot 50-325-40 mg tablet 1 tab PO Q6H PRN (Reason: haeadace) Qty: 20 0RF No Action hydroxyzine HCl 50 mg tablet 50 mg PO BEDTIME Qty: 20 0RF Excedrin Extra Strength 250-250-65 mg tablet 2 tab PO Q6H PRN (Reason: HEADACHE ) Qty: 30 0RF
[2023-08-05] MEDS: Butalb/Acetamin/Caff 50/325/40 TABLET 1 TAB PO (00:48)
[2023-08-05] MEDS: Metoclopramide HCl 10 MG TABLET PO (00:48)
[2023-08-05 01:19] VITALS: BP 105/55; PULSE 66; RESP 16; TEMP 36.9; O2SAT 98
== END 2023-08-05 01:39 | disposition home or self-care (01) ==
PROVIDERS: Emergency Provider Internal Medicine; PCP Physician Assistant
DX: G43.909 Migraine, unspecified, not intractable, without status migrainosus (principal); R11.0 Nausea; H93.11 Tinnitus, right ear; Z79.899 Other long term (current) drug therapy
CPT/HCPCS: 36415; 80048; 85025; 99283; 99284

== ENCOUNTER 2023-08-15 17:16 | Emergency (ER) | payer OTHER, MEDICAID, SELFPAY ==
[2023-08-15 17:19] VITALS: BP 113/63; PULSE 87; RESP 20; TEMP 37; O2SAT 97; BMI 22.8
--- NOTE | 2023-08-15 17:19 | ED.GENADULT ---
HPI - General Adult General Chief complaint: Upper Respiratory Symptoms Stated complaint: fatigue dizzy Source: patient Mode of arrival: ambulatory Limitations: no limitations History of Present Illness HPI narrative: Patient is a 28-year-old female presenting to the ED with complaint of feeling lightheaded, fatigued, and nauseous, palpitations since yesterday. Denies chest pain or dyspnea. States her children currently have influenza A. Denies abdominal pain, vomiting, diarrhea, fever. MD complaint: fatigue Onset (ago): day(s) Treatments prior to arrival: none Related Data Previous Rx's Medication Instructions Recorded rohdzgv-oqdyofmdarotp-mmdiykfi 250 2 tab PO Q6H PRN HEADACHE #30 tabs 08/04/23 mg-250 mg-65 mg tablet (Excedrin Extra Strength) hydroxyzine HCl 50 mg tablet 50 mg PO BEDTIME SLEEP AND ANXIETY 08/04/23 #20 tabs xivjkbntfc-iqzukwayhgvgc-obaofvty 1 tab PO Q6H PRN haeadace #20 tabs 08/05/23 50 mg-325 mg-40 mg tablet ondansetron 4 mg disintegrating 4 mg PO Q6-8H PRN nausea and 08/05/23 tablet vomiting #10 tabs oseltamivir 75 mg capsule 75 mg PO BID 5 days #10 caps 08/15/23 Allergies Allergy/AdvReac Type Severity Reaction Status Date / Time No Known Allergies Allergy Verified 08/15/23 17:21 Review of Systems Review of Systems: As per HPI. Yes all other systems are reviewed and are negative Constitutional: Constitutional: Reports as per HPI PMF Past Medical History Surgical History No pertinent past surgical history Family History Family History Father No problems noted. 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 Blood pressure normal. Heart rate normal. Respiratory rate normal. Temperature normal. Oxygen saturation normal. Const General: cooperative, healthy appearing and no acute distress Orientation/consciousness: oriented to person, oriented to place, oriented to time and patient oriented x3 Limitations: no limitations HENMT Head: Yes normocephalic and Yes atraumatic Ears: external ears normal General nose exam: Normal external nose present Face and sinus: Yes face symmetric Mouth: oropharynx normal and moist mucous membranes Throat: Yes uvula midline Eyes Pupils: Equal, round and reactive pupils present Neck Neck: Yes normal visual inspection and Yes supple Resp Effort & Inspection: normal respiratory effort and able to speak in complete sentences Auscultation: clear to auscultation bilaterally Cardio Rate: regular rate Rhythm: regular rhythm Heart sounds: S1 normal heart sound present and S2 normal heart sound present GI Palpation (GI): Soft to palpation and nontender Auscultation: normoactive bowel sounds General: Yes no CVA tenderness Back/Spine/Pelvis Back: no CVA tenderness Skin General skin exam: elasticity normal and turgor normal Neuro General: oriented to person, oriented to place, oriented to time, patient oriented x3, moves all extremities, no focal motor deficits and CN's II-XI intact bilaterally Cranial nerves: Yes Equal, round and reactive pupils present Cognition (Neuro): normal cognition Extrem General: Yes full ROM, Yes no pedal edema and Yes no calf tenderness Psych Mental Status: mental status grossly normal Affect: normal affect Thought process: Normal thought process present Medical Decision Making Medical Decision Making MDM Narrative: Patient is a 28-year-old female presenting to the ED with complaint of feeling lightheaded, fatigued, and nauseous, palpitations since yesterday. On exam patient is awake, A+Ox3, VS WNL, afebrile, normal neurological exam without focal deficits, physical exam findings as above. Given reported symptoms and physical exam findings, initial differential includes viral illess, flu, covid, rsv, cardiac dysrhythmia, electrolyte abnormality, anemia. Labs notable for no leukocytosis or anemia, normal electrolytes. EKG shows normal sinus rhythm. Swab positive for influenza A. Discussed treatment with Tamiflu which patient is agreeable to. Discussed isolation precautions and return symptoms. Instructed patient follow-up with primary care provider. Patient verbalized understanding of and agreement with plan. Differential Diagnosis Differential Diagnoses: The differential diagnosis associated with the presentation includes As per MDM. Lab Data [facility] Lab Attestation statement: I reviewed the patient's lab results. As per MDM. 08/15/23 17:47 08/15/23 17:47 Labs: Lab Results 08/15/23 Range/Units 17:47 WBC 7.4 (4.8-10.8) X10*3/uL RBC 4.63 (4.20-5.50) X10*6/uL Hgb 13.8 (12.0-16.0) g/dl Hct 40.5 (37.0-47.0) % MCV 87.5 (80.0-98.0) fL MCH 29.8 (27.0-33.0) pg MCHC 34.1 (31.0-35.0) g/dl RDW 12.3 (11.0-16.0) % Plt Count 242 (160-400) X10*3/uL MPV 9.6 (9.4-12.3) fL Immature Gran % (Auto) 0.3 (0.0-0.4) % Neut % (Auto) 73.7 H (45-73) % Lymph % (Auto) 14.1 L (20-40) % [place] % (Auto) 9.0 (2-11) % Eos % (Auto) 2.6 (0-4) % Baso % (Auto) 0.3 (0-2) % Lymph # (Auto) 1.0 L (1.2-4.9) X10*3/uL [place] # (Auto) 0.7 (0.1-1.2) X10*3/uL Eos # (Auto) 0.2 (0.0-0.4) X10*3/uL Baso # (Auto) 0.0 (0.0-0.2) X10*3/uL Abs Immat Gran (auto) 0.02 (0.00-0.03) X10*3/uL Absolute Neuts (auto) 5.4 (2.0-8.3) x10*3/uL Absolute Nucleated RBC 0.000 (0.0-0.012) X10*3/uL Nucleated RBC % (auto) 0.0 (0.0-0.2) /100WBC Sodium 141 (135-145) mmol/L Potassium 3.8 (3.3-5.1) mmol/L Chloride 109 H (96-108) mmol/L Carbon Dioxide 24 (22-29) mmol/L Anion Gap 12 (12-20) BUN 8 L (9-16) mg/dL Creatinine 0.75 (0.5-1.4) mg/dL Estim Creat Clear Calc 113.6 Estimated GFR > 60 Random Glucose 101 (60-115) mg/dL Calcium 9.6 (8.4-10.2) mg/dL Total Bilirubin 0.2 (0.0-1.0) mg/dL AST 20 (5-31) U/L ALT 17 (0-31) U/L Alkaline Phosphatase 58 (39-117) U/L Total Protein 7.6 (6.5-8.0) g/dL Albumin 4.4 (3.5-5.0) g/dL Beta HCG, Quant < 2 mIU/mL Influenza Type A (PCR) POSITIVE A (Negative) Influenza Type B (PCR) NEGATIVE (Negative) RSV RNA Qual (PCR) NEGATIVE (Negative) SARS-CoV-2 RNA (RT-PCR) NEGATIVE (Negative) Independent Interpretation I performed an independent interpretation of an: EKG (Normal sinus rhythm, rate 70bpm, normal MD interval and QTc) External Record Review External record reviewed: Inpatient record, Office record and Outpatient record Prescription Management I considered prescription management with: Antiviral Discharge Plan Discharge Clinical Impression: Influenza A Patient Disposition: Home, Self-Care Instructions: Influenza (DC), Flu Shot (Vaccine) for Adults (ED), Droplet Precautions (ED) Additional Instructions: You were evaluated in the emergency department today for fatigue and palpitations. Your flu test was positive. Your labs and EKG were normal. You should isolate at home for another 4 days and continue to wear mask or symptomatic after that. You are being treated with Tamiflu. Your symptoms should resolve over time with rest and fluids. You can take 650 mg Tylenol or 600 mg ibuprofen every 6 hours as needed for fever or pain. Please follow-up with your primary care provider for any ongoing symptoms. Return to the emergency department if you develop worsening pain, fever not controlled with Tylenol and ibuprofen, chest pain, dizziness or lightheadedness, or any other concerning symptoms. Prescriptions: New oseltamivir 75 mg capsule 75 mg PO BID 5 Days Qty: 10 0RF No Action ondansetron 4 mg tablet,disintegrating 4 mg PO Q6-8H PRN (Reason: nausea and vomiting) Qty: 10 0RF qkrjsshxkx-lmtfnlpuinfbx-kwbp 50-325-40 mg tablet 1 tab PO Q6H PRN (Reason: haeadace) Qty: 20 0RF hydroxyzine HCl 50 mg tablet 50 mg PO BEDTIME Qty: 20 0RF Excedrin Extra Strength 250-250-65 mg tablet 2 tab PO Q6H PRN (Reason: HEADACHE ) Qty: 30 0RF Stand Alone Forms: Work/School Release
--- NOTE | 2023-08-15 17:21 | ECG_ITS ---
Test Reason : TACHYCARDIA Blood Pressure : / mmHG Vent. Rate : 070 BPM Atrial Rate : 070 BPM P-R Int : 130 ms QRS Dur : 096 ms QT Int : 372 ms P-R-T Axes : 065 -19 068 degrees QTc Int : 401 ms Normal sinus rhythm Normal ECG When compared with ECG of 01-JUN-2023 22:54, No significant change was found Referred By: Candice Pisano Electronically Signed By:GRAY ROSARIO
[2023-08-15 17:52] LABS: MANUAL DIFF FLAG NO
[2023-08-15 17:53] LABS: Basophils Percent Auto 0.3 % (0-2); Eosinophils Absolute Auto 0.2 X10*3/uL (0.0-0.4); Eosinophils Percent Auto 2.6 % (0-4); Hematocrit 40.5 % (37.0-47.0); Hemoglobin 13.8 g/dl (12.0-16.0); Imm Gran Abs Auto 0.02 X10*3/uL (0.00-0.03); Imm Gran Pct Auto 0.3 % (0.0-0.4); Lymphocytes Percent Auto 14.1 % (20-40); Mean Corpuscular HGB Conc 34.1 g/dl (31.0-35.0); Mean Corpuscular Hemoglobin 29.8 pg (27.0-33.0); Mean Corpuscular Volume 87.5 fL (80.0-98.0); Mean Platelet Volume 9.6 fL (9.4-12.3); Monocytes Absolute Auto 0.7 X10*3/uL (0.1-1.2); Neutrophils Absolute Auto 5.4 x10*3/uL (2.0-8.3); Neutrophils Percent Auto 73.7 % (45-73); Platelet Count 242 X10*3/uL (160-400); Red Blood Count 4.63 X10*6/uL (4.20-5.50); Red Cell Distribution Width 12.3 % (11.0-16.0); White Blood Count 7.4 X10*3/uL (4.8-10.8)
[2023-08-15 18:18] LABS: Alanine Aminotransferase 17 U/L (0-31); Albumin Level 4.4 g/dL (3.5-5.0); Alkaline Phosphatase 58 U/L (39-117); Anion Gap 12 (12-20); Aspartate Amino Transferase 20 U/L (5-31); Bilirubin Total 0.2 mg/dL (0.0-1.0); Blood Urea Nitrogen 8 mg/dL (9-16); Calcium 9.6 mg/dL (8.4-10.2); Carbon Dioxide 24 mmol/L (22-29); Chloride 109 mmol/L (96-108); Creatinine Clr Calc Pharmacy 113.6; Estimated Glomerular Filt Rate > 60; Glucose Random 101 mg/dL (60-115); Potassium 3.8 mmol/L (3.3-5.1); Sodium 141 mmol/L (135-145); Total Protein 7.6 g/dL (6.5-8.0)
[2023-08-15 18:19] LABS: HCG Quantitative < 2 mIU/mL
[2023-08-15 18:34] LABS: Influenza A PCR POSITIVE (Negative); Influenza B PCR NEGATIVE (Negative); Resp Syncy Virus RNA Qual PCR NEGATIVE (Negative); SARS COV2 PCR INHOUSE NEGATIVE (Negative)
[2023-08-15 19:49] VITALS: BP 117/71; PULSE 68; RESP 14; TEMP 36.8; O2SAT 95
== END 2023-08-15 20:00 | disposition home or self-care (01) ==
LOC: HO.ED 19:59
PROVIDERS: Registered Nurse Emergency; Emergency Provider Emergency Medicine Emergency Medical Services; PCP Physician Assistant
DX: J10.1 Influenza due to other identified influenza virus with other respiratory manifestations (principal); R42 Dizziness and giddiness; R00.2 Palpitations; Z11.52 Encounter for screening for COVID-19; Z20.822 Contact with and (suspected) exposure to COVID-19; Z79.899 Other long term (current) drug therapy
CPT/HCPCS: 0241U; 80053; 84702; 85025; 93005; 99283; 99284

== ENCOUNTER → 2023-08-15 17:21 | Outpatient (BNV) | payer OTHER, SELFPAY | PROVIDERS: Emergency Provider Emergency Medicine Emergency Medical Services; PCP Physician Assistant; Visit Provider Internal Medicine | DX: R00.0 Tachycardia, unspecified (principal) | CPT/HCPCS: 93010 ==

== ENCOUNTER 2023-08-29 13:19 | Outpatient (AMB) | payer OTHER, MEDICAID, SELFPAY ==
--- NOTE | 2023-08-29 13:27 | MHC.PC.OV ---
Vital Signs 08/29/23 13:28 Height 5 ft 8 in Weight 150 lb BMI 22.8 BP 96/60 Blood Pressure Location Lt brachial Position Sitting Respiration 17 Pulse 80 Pulse Source Pulse Oximeter Pulse Oximetry (%) 98 Oxygen Delivery Method Room Air Intake Visit Reasons: FOLLOW UP Intake Note: Patient is here to follow-up after a visit the emergency department at [facility] for migraine and one episode of syncope on 08/15/23. [employer] Bpm Developer Required: No Accompanied by: Self / Same As Patient Allergies sertraline Adverse Reaction (Intermediate, Verified 08/29/23 13:59) Ineffective sumatriptan Adverse Reaction (Intermediate, Verified 08/29/23 13:59) Palpitations Medication List - Last Reconciled 08/29/23 by Fredrick Padilla PA-C wbwfouv-nxijxvjxnubiz-boxikyrj 250-250-65 mg (Excedrin Extra Strength) 2 tabs PO Q6H PRN lfjgwrdttn-ulzlvaninbndc-ruhh 50-325-40 mg 1 tab PO Q6H PRN hydroxyzine HCl 50 mg PO BEDTIME Tobacco use date assessed: 08/29/23 Dental Screening Dental Screen Date: 08/29/23 Did you have a dental visit in the last 12 months?: Yes Did you have a dental problem in the last 6 months where you did not have access to dental care?: No Was dental information given to patient?: Patient has dentist HPI FOLLOW UP HPI Details Patient is a 28-year-old female here today for follow-up visit. Patient has a past medical history significant for anxiety and migraine disorder. Since last primary care visit she has been seen at the ER 3 times for various reasons and the walk-in clinic once. She has been experiencing palpitations and syncopal episodes. EKGs normal, did have echocardiogram that did not show any valvular or myocardial abnormalities. Headaches: She did have a CT of her head when she had her syncopal episode without any intracranial mass noted. She reports she continues to have daily headaches. She reports having them last for quite a few hours, no associated auras or nighttime awakenings with headaches. She has been taking Tylenol on a daily basis though has not been effective. She does report Fioricet has been affective. Also she reports ibuprofen 800 in the past has been effective on reducing her migraines. She can not recall a trigger of her migraines at this time Generalized anxiety disorder: Has tried sertraline 25 mg though felt it was ineffective. PLAN: Will try low-dose amitriptyline at night for both her migraines and her anxiety. Laboratory Tests 02/23/22 06/02/23 08/15/23 10:12 02:01 17:47 RBC 4.86 4.63 Creatinine Beta HCG, Quant < 2 Influenza Type A ( PCR) TB Test (T-Spot) C om Negative 08/15/23 17:47 RBC Creatinine 0.75 Beta HCG, Quant < 2 Influenza Type A ( PCR) POSITIVE A TB Test (T-Spot) C om PFSH Surgical History No pertinent past surgical history Family History Father No problems noted. 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 1. Little interest or pleasure in doing things: not at all 2. Feeling down, depressed, or hopeless: several days 3. Trouble falling or staying asleep, or sleeping too much: nearly every day 4. Feeling tired or having little energy: more than half the days 5. Poor appetite or overeating: not at all 6. Feeling bad about yourself - or that you are a failure or have let yourself or your family down: not at all 7. Trouble concentrating on things, such as reading the newspaper or watching television: more than half the days 8. Moving or speaking so slowly that other people could have noticed. Or the opposite - being so fidgety or restless that you have been moving around a lot more than usual: not at all 9. Thoughts that you would be better off or of hurting yourself in some way: not at all Total score: 8 Depression Screening Interpretation: Positive Depression Screening Follow-up: Existing condition Depression Screening Done: Yes 23853 - PHQ-9 Billing: Yes Source: Developed by Drs. Kelechi Ibrahim, Maya Fritz, Kennedy Sue and colleagues, with an educational africa from [employer]. Thrive Questionnaire Date Thrive assessed: 08/29/23 I am a: Patient What is your living situation today?: I have a steady place to live Within the past 12 months, did the food you bought not last and you didn't have the money to get more?: Never true Within the past 12 months, did you worry whether your food would run out before you got money to buy more?: Never true Do you have trouble paying for medicines?: No Do you have trouble getting transportation to medical appointments?: No Do you have trouble paying your heating and electricity bill?: No Do you have trouble taking care of your child, family member or friend?: No Do you have trouble with day-to-day activities such as bathing, preparing meals, shopping, managing finances, etc.?: No Are you currently unemployed and looking for a job?: No Are you interested in more education?: No Please select the resources that you would like help with: None Currently or been in a relationship where the following occur: no concerns reported THRIVE Score: 0 AUDIT C Alcohol Use Questionnaire (AUDIT-C) 1. How often do you have a drink containing alcohol?: Never 3. How often do you have six or more drinks on one occasion?: Never Total Score: 0 EMILEE-7 AMB Questionnaire EMILEE-7 Date EMILEE - 7 assessed: 08/29/23 Feeling nervous, anxious, or on edge: 3 = Nearly every day Not being able to stop or control worryin = More than half the days Worrying too much about different things: 2 = More than half the days Trouble relaxin = More than half the days Being so restless that it is hard to sit still: 0 = Not at all Becoming easily annoyed or irritable: 0 = Not at all Feeling afraid as if something awful might happen: 1 = Several days Total EMILEE-7 score (0-4 normal; 5-9 mild; 10-14 moderate; 15-21 severe): 10 Source: Developed by Drs. Kelechi Ibrahim, Maya Fritz, Kennedy Sue and colleagues, with an educational africa from [employer]. EMILEE-7 Assessment Billing EMILEE-7 Assessment Tool: EMILEE-7 Assessment 90688 Review of Systems Const Reports headache(s) Eyes Denies loss of vision ENT Denies vertigo, Denies dizziness, Reports headache(s) and Denies sore throat Card Denies chest pain, Denies leg edema and Denies lightheadedness Resp Denies cough, Denies hemoptysis and Denies wheezing GI Denies abdominal pain, Denies melena, Denies constipation, Denies diarrhea and Denies vomiting Denies urinary frequency, Denies dysuria and Denies urinary urgency Musc Denies arthralgias, Denies joint swelling, Denies numbness and Denies tingling Neuro Denies Abnormal speech present, Denies behavioral changes, Denies vertigo, Denies dizziness, Reports headache(s), Denies loss of vision, Denies memory loss, Denies numbness and Denies tingling Psych Denies anxiety, Denies behavioral changes, Denies depression, Denies memory loss and Denies panic attacks Royal/Lymph Denies easy bleeding and Denies easy bruising Aller/Immun Denies wheezing Physical exam (Primary Care) Vital Signs: Oxygen Delivery Method Room Air 08/29/23 13:28 BMI result Body Mass Index 22.8 Tobacco/Smoking Status: Tobacco use Status Tobacco use date assessed 08/29/23 08/29/23 13:48 Patient Tobacco Use Status Never used Tobacco 08/29/23 13:27 e-Cigarette/Vaping Use Never Used 08/29/23 13:27 Depression Screening Interpretation: Positive Depression Screening Follow-up: Existing condition Thrive Assessment: Date of Thrive Assessment Date Thrive assessed 04/26/23 08/29/23 13:27 Currently or been in a relationship where the following occur: no concerns reported Const General: healthy appearing, no acute distress, alert and awake Nutritional Appearance: well nourished Orientation/consciousness: oriented to person, oriented to place and oriented to time HENMT Ears: TM's normal bilaterally General nose exam: Normal nasal mucous membranes and turbinates present Eyes Conjunctivae: conjunctivae normal Sclerae: sclerae normal Pupils: Equal, round and reactive pupils present Neck Neck: Yes no lymphadenopathy and Yes no JVD Thyroid: Thyroid normal Carotids: no bruits Resp Effort & Inspection: normal respiratory effort and not tachypneic Auscultation: no crackles, no rales, no rhonchi and no wheezes Cardio Rate: regular rate Rhythm: regular rhythm Heart sounds: no murmurs and normal S1 and S2 GI Palpation (GI): Soft to palpation, nontender, no hepatomegaly and no splenomegaly Auscultation: normal bowel sounds Skin General skin exam: no rashes or lesions noted and dry skin Neuro General: oriented to person, oriented to place and oriented to time Cranial nerves: Yes Equal, round and reactive pupils present Speech: No Abnormal speech present Gait exam (Neuro): Normal gait present Motor exam (neuro): no tremor noted Extrem Right upper extremity: full ROM Left upper extremity: full ROM Right lower extremity: full ROM; no edema Left lower extremity: full ROM; no edema Psych Mental Status: mental status grossly normal Speech and movement: Normal speech and movement present Affect: normal affect Attitude: cooperative Thought process: Normal thought process present Assessment and Plan Assessment & Plan (1) Migraines: Code(s): G43.909 - Migraine, unspecified, not intractable, without status migrainosus Qualifiers: Migraine type: unspecified Status migrainosus presence: without status migrainosus Intractability: not intractable Qualified Code(s): G43.909 - Migraine, unspecified, not intractable, without status migrainosus Plan: As per HPI, patient has been having frequent headaches over the last few weeks. She can not recall a trigger. Does report Fioricet and NSAIDs have been helpful in reducing headaches though they reoccur. Did have a CT of her head recently without any masses noted. 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 Will start amitriptyline, magnesium and vitamin B2 Will refer to Neurology (2) EMILEE (generalized anxiety disorder): Code(s): F41.1 - Generalized anxiety disorder Plan: Patient's EMILEE-7 score positive anxiety which has been existing condition for her. She has started sertraline though felt it was ineffective. Will try amitriptyline for both her migraine headaches and anxiety. Orders: Referrals Neurology Referral G43.909 - Migraine, unspecified, not intractable, without status migrainosus Medications: New amitriptyline 10 mg PO BEDTIME 30 days 30 tabs 3RF G43.909 - Migraine, unspecified, not intractable, without status migrainosus ibuprofen 800 mg PO DAILY 30 days PRN 30 tabs 1RF pain G43.909 - Migraine, unspecified, not intractable, without status migrainosus magnesium oxide 250 mg PO BID 30 days 60 tabs 1RF G43.909 - Migraine, unspecified, not intractable, without status migrainosus, R51.9 - Headache, unspecified riboflavin (vitamin B2) 50 mg PO DAILY 30 days 30 tabs 3RF G43.909 - Migraine, unspecified, not intractable, without status migrainosus, R51.9 - Headache, unspecified Coding Level of Care Code Est Pt Level 4 (25507) Diagnoses Migraine without status migrainosus, not intractable, unspecified migraine type G43.909 Migraine type: unspecified Status migrainosus presence: without status migrainosus Intractability: not intractable EMILEE (generalized anxiety disorder) F41.1 Additional Codes EMILEE-7 Assessment Billing - EMILEE-7 Assessment Tool: EMILEE-7 Assessment 87233 ([id number])
[2023-08-29 13:28] VITALS: BP 96/60; PULSE 80; RESP 17; O2SAT 98; BMI 22.8
== END 2023-08-29 14:11 | disposition home or self-care (01) ==
PROVIDERS: PCP Physician Assistant; Visit Provider Physician Assistant
DX: G43.909 Migraine, unspecified, not intractable, without status migrainosus (principal); F41.1 Generalized anxiety disorder
CPT/HCPCS: 99214

== ENCOUNTER 2023-09-08 06:02 | Emergency (ER) | payer OTHER, MEDICAID, SELFPAY ==
[2023-09-08 06:22] VITALS: BP 114/63; PULSE 84; RESP 20; TEMP 36.8; O2SAT 98; BMI 23.7
--- NOTE | 2023-09-08 06:41 | ED_ITS ---
HPI - Headache General Chief Complaint: Headache Stated Complaint: Migraine Time Seen by Provider: 09/08/23 06:36 Source: patient Mode of arrival: ambulatory Limitations: no limitations History of Present Illness HPI Narrative: 28 yo female with history of migraines, anxiety presents to the ER for evaluation of left sided headache that woke her from sleep at 5am. She states the headache is in the left retroorbital region and is a 10/10. She is nauseated but has not vomited. She had spots and stars in her vision initially that now went away. She states her legs feel week. She is worried she has a brain tumor. She had a CT scan in May after she syncopized. She has an appointment in December with Neurology and reports getting freqeunt migraines. She has had goos response to Fiorcet in the past but did not have any at home. She took some tylenol with no relief. MD elicited complaint: migraine Pertinent past history: migraines Onset (ago): hour(s) Onset description: suddenly Location: left and retro-orbital Severity: severe Pain scale (0-10): 10 Quality & Timing: throbbing Exacerbating factors: light and noise Relieving factors: nothing Context: occurred at rest Associated symptoms: nausea, photophobia and sensitivity to sound Treatments prior to arrival: acetaminophen Related Data Previous Rx's Medication Instructions Recorded otxzwyo-dvmjzjuagotnf-bowrrbqx 250 2 tab PO Q6H PRN HEADACHE #30 tabs 08/04/23 mg-250 mg-65 mg tablet (Excedrin Extra Strength) hydroxyzine HCl 50 mg tablet 50 mg PO BEDTIME SLEEP AND ANXIETY 08/04/23 #20 tabs itcnrvsond-vgfdauwozchrv-znxafdqy 1 tab PO Q6H PRN haeadace #20 tabs 08/05/23 50 mg-325 mg-40 mg tablet amitriptyline 10 mg tablet 10 mg PO BEDTIME 30 days #30 tabs 08/29/23 ibuprofen 800 mg tablet 800 mg PO DAILY PRN pain 30 days 08/29/23 #30 tabs magnesium oxide 250 mg PO BID 30 days #60 tabs 08/29/23 riboflavin (vitamin B2) 50 mg 50 mg PO DAILY 30 days #30 tabs 08/29/23 tablet butalbital 50 mg-acetaminophen 325 1 cap PO Q4H PRN headache #20 caps 09/08/23 mg-caffeine 40 mg-codeine 30 mg cap Allergies Allergy/AdvReac Type Severity Reaction Status Date / Time sertraline AdvReac Intermediate Ineffective Verified 08/29/23 13:59 sumatriptan AdvReac Intermediate Palpitation Verified 08/29/23 13:59 s Review of Systems Review of Systems: Yes all other systems are reviewed and are negative [facility] Past Medical History Surgical History No pertinent past surgical history Family History Family History Father No problems noted. Mother Hypothyroidism Other No family history of mental disorder Social History Social History Household Members: Children Housing: Apartment Unable to assess alcohol history related to: Unknown Alcohol intake: current Alcohol intake frequency: does not drink Patient Tobacco Use Status: Never used Tobacco Smoked in Last 30 Days: No e-Cigarette/Vaping Use: Never Used Second Hand Smoke Exposure: No Use of substances other than those prescribed or required for medical reasons: No Substance Use Type: Marijuana Advance Directives: No Advance Directives Information Provided: No Current occupational status: employed 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 Oriented X3. No acute distress. Head: normocephalic, atraumatic. Eyes: Pupils equal, round and reactive to light. No nystagmus. EOMI. ENT: Pharynx normal. No tonsillar swelling or exudate. Neck: Normal inspection. Neck supple. CVS: Normal heart rate and rhythm. Pulses normal. Respiratory: No respiratory distress. Breath sounds normal. Abdomen: Soft and nontender. +BS x4 Skin: Skin warm and dry. Normal skin color. Normal skin turgor. No rashes. Extremities: No lower extremity edema. No joint swelling. Neuro/psych: Oriented X 3. No motor deficit. No sensory deficit. CN II-XII intact. Normal speech and cognition. Course Reevaluation(s) Reevaluation #1: minimal improvement w/ fiorcet Time: 08:19 Medications Administered Discontinued Medications Generic Name Dose Route Start Last Admin Trade Name Eleni PRN Reason Stop Dose Admin Acetaminophen/Butalbital/Caffeine 1 tab 09/08/23 06:47 09/08/23 06:52 Butalb/Acetamin/Caff 50/325/40 Tablet PO 09/08/23 06:48 1 tab ONCE ONE Administration Diphenhydramine HCl 50 mg 09/08/23 08:18 09/08/23 08:51 Diphenhydramine Hcl 50 Mg/Ml Vial IVPUSH 09/08/23 08:19 50 mg ONCE ONE Administration Sodium Chloride 1,000 mls @ 999 mls/hr 09/08/23 08:30 09/08/23 10:42 Ns IV 09/08/23 09:30 Infused .Q1H1M VALENTIN Infusion Ibuprofen 600 mg 09/08/23 06:48 09/08/23 06:52 Ibuprofen 600 Mg Tablet PO 09/08/23 06:49 600 mg ONCE ONE Administration Ketorolac Tromethamine 15 mg 09/08/23 08:18 09/08/23 08:51 Ketorolac Tromethamine 15 Mg/Ml Vial IVPUSH 09/08/23 08:19 15 mg ONCE ONE Administration Metoclopramide HCl 10 mg 09/08/23 08:18 09/08/23 08:51 Metoclopramide Hcl 10 Mg/2 Ml Vial IVPUSH 09/08/23 08:19 10 mg ONCE ONE Administration Ondansetron HCl 4 mg 09/08/23 06:47 09/08/23 06:52 Ondansetron Odt 4 Mg Tab.Rapdis TRANSLINGU 09/08/23 06:48 4 mg ONCE ONE Administration Medical Decision Making Medical Decision Making MDM Narrative: 28-year-old female with history of migraines presents to the ER for evaluation of acute onset of severe 10/10 left-sided retro-orbital headache that started a.m. today. Neurologically intact on examination. No gait abnormality. She is concerned about a brain tumor, this is low on the differential given her history and recent normal CT scan. She does have neuro appointment in december. defer CT scan today she was given PO fiorcet for headache with no improvement. IV established and IV reglan, benadryl given upson re-evaluation VS remain stable and she feels much better. she is stable for d/c home at this time Differential Diagnosis Differential Diagnoses: The differential diagnosis associated with the presentation includes Migraine, tension headache, anxiety attack, Admission/Observation Consideration of admission/observation: Escalation of care including admission/observation considered refractory migraine requiring both PO and IV treatments, considered obs External Record Review External record reviewed: Prior outpatient labs and Prior outpatient radiology Tests considered The following testing was considered but not selected: CT head considered Prescription Management I considered prescription management with: Pain Medication Critical Care Time Critical Care Time Critical Care Time: No Discharge Plan Discharge Clinical Impression: Migraine Qualifiers: Migraine type: unspecified Status migrainosus presence: without status migrainosus Intractability: not intractable Qualified Code(s): G43.909 - Migraine, unspecified, not intractable, without status migrainosus Patient Disposition: Home, Self-Care Instructions: Migraine Headache (ED) Additional Instructions: Take the prescribed medication as needed for migraines. Follow-up with PCP and Neurology as soon as possible. If you develop new or worsening symptoms call 911 or come back to the ER for further evaluation. Prescriptions: New amhjyilzag-vsbapncwcy-lqw-cod 87-024-80-30 mg capsule 1 cap PO Q4H PRN (Reason: headache) Qty: 20 0RF No Action uwcyefbjjp-mevebxyuqmnyy-ceuk 50-325-40 mg tablet 1 tab PO Q6H PRN (Reason: haeadace) Qty: 20 0RF amitriptyline 10 mg tablet 10 mg PO BEDTIME 30 Days Qty: 30 3RF ibuprofen 800 mg tablet 800 mg PO DAILY PRN (Reason: pain) 30 Days Qty: 30 1RF magnesium oxide 250 mg magnesium tablet 250 mg PO BID 30 Days Qty: 60 1RF riboflavin (vitamin B2) 50 mg tablet 50 mg PO DAILY 30 Days Qty: 30 3RF hydroxyzine HCl 50 mg tablet 50 mg PO BEDTIME Qty: 20 0RF Excedrin Extra Strength 250-250-65 mg tablet 2 tab PO Q6H PRN (Reason: HEADACHE ) Qty: 30 0RF Referrals: Fredrick Padilla PA-C [Primary Care Provider] - Stand Alone Forms: Work/School Release
[2023-09-08] MEDS: Ibuprofen 600 MG TABLET PO (06:52)
[2023-09-08] MEDS: Ondansetron ODT 4 MG TAB.RAPDIS TRANSLINGU (06:52)
[2023-09-08] MEDS: Butalb/Acetamin/Caff 50/325/40 TABLET 1 TAB PO (06:52)
[2023-09-08 07:12] VITALS: BP 94/51; PULSE 65; RESP 18; TEMP 36.8; O2SAT 99
[2023-09-08] MEDS: Ketorolac Tromethamine 15 MG/ML VIAL IVPUSH (08:51)
[2023-09-08] MEDS: Metoclopramide HCl 10 MG/2 ML VIAL IVPUSH (08:51)
[2023-09-08] MEDS: diphenhydrAMINE HCL 50 MG/ML VIAL IVPUSH (08:51)
[2023-09-08] MEDS: 0.9 % Sodium Chloride 1,000 ML 999 ML IV (08:57)
[2023-09-08 10:54] VITALS: BP 92/47; PULSE 77; RESP 18; TEMP 36.8; O2SAT 100
== END 2023-09-08 11:22 | disposition home or self-care (01) ==
PROVIDERS: Emergency Provider Emergency Medicine; PCP Physician Assistant
DX: G43.909 Migraine, unspecified, not intractable, without status migrainosus (principal)
CPT/HCPCS: 96361; 96374; 96375; 99284; J1200; J1885; J2765

== ENCOUNTER 2023-09-12 14:44 | Outpatient (AMB) | payer OTHER, MEDICAID, SELFPAY ==
--- NOTE | 2023-09-12 14:44 | A.OFFPC_ITS ---
Vital Signs 09/12/23 14:45 Height 5 ft 8 in Weight 148 lb 2 oz BMI 22.5 BP 110/60 Blood Pressure Location Lt brachial Position Sitting Respiration 17 Pulse 99 Pulse Source Pulse Oximeter Pulse Oximetry (%) 98 Oxygen Delivery Method Room Air Intake Visit Reasons: migraine/Neuro referral/MRI Boxing And Pressing Supervisor Required: No Accompanied by: Self / Same As Patient Allergies sertraline Adverse Reaction (Intermediate, Verified 09/12/23 15:01) Ineffective sumatriptan Adverse Reaction (Intermediate, Verified 09/12/23 15:01) Palpitations Medication List - Last Reconciled 09/12/23 by Fredrick Padilla PA-C amitriptyline 10 mg PO BEDTIME 30 days ncbxzqr-dxwifoibrqdjm-kxuocrkc 250-250-65 mg (Excedrin Extra Strength) 2 tabs PO Q6H PRN gfihdcsmll-vmvlhnwoml-urm-cod 41-079-16-30 mg 1 cap PO Q4H PRN jfouojvarc-lbbypkhsetnrs-wpkj 50-325-40 mg 1 tab PO Q6H PRN hydroxyzine HCl 50 mg PO BEDTIME ibuprofen 800 mg PO DAILY PRN 30 days magnesium oxide 250 mg PO BID 30 days riboflavin (vitamin B2) 50 mg PO DAILY 30 days Tobacco use date assessed: 08/29/23 Dental Screening Dental Screen Date: 09/12/23 Did you have a dental visit in the last 12 months?: Yes Did you have a dental problem in the last 6 months where you did not have access to dental care?: No Was dental information given to patient?: Patient has dentist HPI migraine/Neuro referral/MRI HPI Details Patient is a 28-year-old female here today for problem visit. Last visit we discussed her migraines and was started on vitamin B12, magnesium , amitriptyline though has not found any reduction in her frequency and severity of migraine symptoms including what seems to be auras.. She reports her migraines has actually gotten worse prompting her to be seen at the ER again. CT of brain without any masses, hemorrhaging or any other int racranial pathology. She was advised by ER provider did she may need an MRI.. She does have upcoming appointment with Neurology in December of 2023. PLAN: Will try for MRI of brain to evaluate for any intracranial pathology due to the reports of migraines with auras. Will also start Triptan PFSH Surgical History No pertinent past surgical history Family History Father No problems noted. 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 Kelechi Ibrahim, Maya Fritz, Kennedy Sue and colleagues, with an educational africa from [employer]. Review of Systems Const Reports headache(s) Eyes Denies loss of vision ENT Denies vertigo, Denies dizziness, Reports headache(s) and Denies sore throat Card Denies chest pain, Denies leg edema and Denies lightheadedness Resp Denies cough, Denies hemoptysis and Denies wheezing GI Denies abdominal pain, Denies melena, Denies constipation, Denies diarrhea and Denies vomiting Denies urinary frequency, Denies dysuria and Denies urinary urgency Musc Denies arthralgias, Denies joint swelling, Denies numbness and Denies tingling Neuro Denies Abnormal speech present, Denies behavioral changes, Denies vertigo, Denies dizziness, Reports headache(s), Denies loss of vision, Denies memory loss, Denies numbness and Denies tingling Psych Denies anxiety, Denies behavioral changes, Denies depression, Denies memory loss and Denies panic attacks Royal/Lymph Denies easy bleeding and Denies easy bruising Aller/Immun Denies wheezing Physical exam (Primary Care) Vital Signs: Last Vital Signs Pulse 99 09/12/23 14:45 Resp 17 09/12/23 14:45 BP 110/60 09/12/23 14:45 Pulse Ox 98 03/26/24 14:45 Oxygen Delivery Method Room Air 09/12/23 14:45 BMI result Body Mass Index 22.5 Tobacco/Smoking Status: Tobacco use Status Tobacco use date assessed 08/29/23 09/12/23 14:45 Patient Tobacco Use Status Never used Tobacco 09/12/23 14:45 e-Cigarette/Vaping Use Never Used 09/12/23 14:45 Thrive Assessment: Date of Thrive Assessment Date Thrive assessed 08/29/23 09/12/23 14:45 Const General: healthy appearing, no acute distress, alert and awake Nutritional Appearance: well nourished Orientation/consciousness: oriented to person, oriented to place and oriented to time HENMT Ears: TM's normal bilaterally General nose exam: Normal nasal mucous membranes and turbinates present Eyes Conjunctivae: conjunctivae normal Sclerae: sclerae normal Pupils: Equal, round and reactive pupils present Neck Neck: Yes no lymphadenopathy and Yes no JVD Thyroid: Thyroid normal Carotids: no bruits Resp Effort & Inspection: normal respiratory effort and not tachypneic Auscultation: no crackles, no rales, no rhonchi and no wheezes Cardio Rate: regular rate Rhythm: regular rhythm Heart sounds: no murmurs and normal S1 and S2 GI Palpation (GI): Soft to palpation, nontender, no hepatomegaly and no splenomegaly Auscultation: normal bowel sounds Skin General skin exam: no rashes or lesions noted and dry skin Neuro General: oriented to person, oriented to place and oriented to time Cranial nerves: Yes Equal, round and reactive pupils present Speech: No Abnormal speech present Gait exam (Neuro): Normal gait present Motor exam (neuro): no tremor noted Extrem Right upper extremity: full ROM Left upper extremity: full ROM Right lower extremity: full ROM; no edema Left lower extremity: full ROM; no edema Psych Mental Status: mental status grossly normal Speech and movement: Normal speech and movement present Affect: normal affect Attitude: cooperative Thought process: Normal thought process present Assessment and Plan Assessment & Plan (1) Migraines: Code(s): G43.909 - Migraine, unspecified, not intractable, without status migrainosus Qualifiers: Intractability: not intractable Migraine type: unspecified Status migrainosus presence: without status migrainosus Qualified Code(s): G43.909 - Migraine, unspecified, not intractable, without status migrainosus Plan: She reports she has been more severe migraines and is even explaining signs and symptoms of auras. CT of head without any masses or bleeds. MRI has been recommended. Has been started on vitamin B2 and magnesium along with amitriptyline though has not found it to be very effective. She is willing to trial sumatriptan Has upcoming appointment with Neurology in December. Orders: Orders MR head/brain wo con 09/12/23 G43.909 - Migraine, unspecified, not intractable, without status migrainosus TSH reflex Free T4 09/12/23 F41.1 - Generalized anxiety disorder Medications: New lorazepam take Rx 30 minutes before procedure 0.5 mg PO DAILY 2 days 2 tabs 0RF anxiety F41.1 - Generalized anxiety disorder sumatriptan succinate take 1 tab at onset of headache; if no relief may repeat 1 tab after at least 2 hrs; max = 4 tabs/24 hr PO 30 days 9 tabs 0RF G43.909 - Migraine, unspecified, not intractable, without status migrainosus Coding Level of Care Code Est Pt Level 4 (23558) Diagnoses Migraine without status migrainosus, not intractable, unspecified migraine type G43.909 Intractability: not intractable Migraine type: unspecified Status migrainosus presence: without status migrainosus
[2023-09-12 14:45] VITALS: BP 110/60; PULSE 99; RESP 17; O2SAT 98; BMI 22.5
== END 2023-09-12 15:19 | disposition home or self-care (01) ==
PROVIDERS: PCP Physician Assistant; Visit Provider Physician Assistant
DX: G43.909 Migraine, unspecified, not intractable, without status migrainosus (principal)
CPT/HCPCS: 99214

== ENCOUNTER 2023-09-13 10:56 | Outpatient (REF) | payer OTHER, SELFPAY | END 2023-09-13 10:57 | disposition home or self-care (01) | LOC: HO.LAB 10:56 | PROVIDERS: PCP Physician Assistant; Visit Provider Physician Assistant | DX: F41.1 Generalized anxiety disorder (principal) | CPT/HCPCS: 36415; 84443 ==

== ENCOUNTER 2023-09-18 10:40 | Outpatient (REF) | payer OTHER, SELFPAY ==
--- NOTE | ~2023-09-18 | MR_ITS ---
EXAMINATION: MR BRAIN WITHOUT CONTRAST CLINICAL INFORMATION: Migraine with aura as COMPARISON: CT head on 08/01/2012 TECHNIQUE: MRI of the brain was obtained using routine sequences without contrast. FINDINGS: No acute intracranial hemorrhage or infarct. No midline shift or hydrocephalus. No acute extra-axial fluid collections. The osseous structures are unremarkable. The pituitary gland, pineal gland and remaining midline structures are unremarkable. No orbital pathology. Mild mucosal thickening of the paranasal sinuses. The mastoid air cells are clear. MR/MR head/brain wo con IMPRESSION: Normal brain MRI.
== END 2023-09-18 10:41 | disposition home or self-care (01) ==
LOC: HO.MRI 10:40
PROVIDERS: Visit Provider Physician Assistant
DX: G43.909 Migraine, unspecified, not intractable, without status migrainosus (principal)
CPT/HCPCS: 70551

== ENCOUNTER 2024-01-05 07:52 | Outpatient (AMB) | payer OTHER, MEDICAID, SELFPAY ==
[2024-01-05 07:53] VITALS: BP 98/78; PULSE 83; O2SAT 98; BMI 22.3
--- NOTE | 2024-01-05 07:53 | A.OFFVIS_ITS ---
Vital Signs 01/05/24 07:53 Height 5 ft 8 in Weight 147 lb BMI 22.3 BP 98/78 Blood Pressure Location Rt brachial Position Sitting Pulse 83 Pulse Source Pulse Oximeter Pulse Oximetry (%) 98 Oxygen Delivery Method Room Air Intake Visit Reasons: [id number] Intake Note: Patient presents for migraines. patient sttaes migraines are more consistent used to tale sumatriptan but doens't work anymore Allergies sertraline Adverse Reaction (Intermediate, Verified 01/05/24 07:57) Ineffective Medication List - Last Reconciled 01/05/24 by Odalys Resendiz, SERVICE STATION MANAGER amitriptyline 10 mg PO BEDTIME 30 days ezgosry-njcuxtvtzfasv-oxxwifdv 250-250-65 mg (Excedrin Extra Strength) 2 tabs PO Q6H PRN vnhnwkrypn-fdwqcdgsnv-dyz-cod 91-568-33-30 mg 1 cap PO Q4H PRN vegvwgobla-poqmgmipxoixq-qkzj 50-325-40 mg 1 tab PO Q6H PRN hydroxyzine HCl 50 mg PO BEDTIME ibuprofen 800 mg PO DAILY PRN 30 days lorazepam 0.5 mg PO DAILY 2 days magnesium oxide 250 mg PO BID 30 days riboflavin (vitamin B2) 50 mg PO DAILY 30 days sumatriptan succinate take 1 tab at onset of headache; if no relief may repeat 1 tab after at least 2 hrs; max = 4 tabs/24 hr PO 30 days HPI Comments Details: Right-handed 28-yr-old female presents for new pt evaluation of headache disorder. Pt reports she has had headaches since adolescence w/o known precipitating causes. Then in the last few months, they have been worsening w/o known triggers. Recent head imaging was normal. PMH and ROS are notable for:? General: Fatigue- all the time Musculoskeletal disorders or injury: Aching neck and back pain- feels it is her posture. History of concussion/head injury: mild concussion in high school- from sports Mood d/o: Anxiety, ADHD- Dx when younger, never took tx Respiratory d/o: Asthma- childhood, exercise induced Neuro: spaces out at times CV disease: low BP History of near-syncope- one episode of near-syncope in May 2024, after having a more severe headache, had abd cramps and was trying to have a BM but did not, stood up, was dizzy, and took a few steps, and fell (states was aware during the entire event)t. Denies interictal inc. Denies residual confusion/fatigue. 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 No plans for further children. Spouse has vasectomy. Pertinent denials include: Usual dizziness, orthostatic lightheadedness, vision changes, tinnitus. Clotting or hematology d/o, Endocrine d/o, metabolic d/o, History of seizure. Family history of migraine or other headache disorder Lifestyle considerations: Sleep routine: Usual bedtime: 9-10pm and wake-up time: 6:30am Sleep difficulties: Endorses:Snoring, Excessive daytime sleepiness, Fatigue, Some restless sleep. 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 Typical headache characteristics: Prodrome symptoms: None Aura: None Pain intensity: mild-moderate Location, quality, characteristics: Bilateral top of the head and sides of the head. When more severe and daily- in the back of the head. Throbbing and pressure pain. Associated symptoms: photophobia, hair hurts Postdrome: lingers Triggers: poor sleep, stress Time of day: No specific time of day- but has woken her up at night. Duration and Frequency: Typically a few hours. A few months ago, the headache was not more severe but lasted 7-8 days How does headache impact your life? Usually pushes through. Current acute medication use/interventions: Ibuprofen- usually helps. Current preventative medication use: None Non-pharmacological interventions: rest PFSH Surgical History No pertinent past surgical history Family History Father No problems noted. 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 Mild posterior cervical tightness and tenderness with good cervical range of motion. Bilateral Spurling negative. General: patient oriented x3 Cranial nerves: Yes CN's II-XII intact bilaterally Cognition (Neuro): normal cognition Gait exam (Neuro): Normal gait present Motor exam (neuro): 5/5 motor strength present throughout Deep tendon reflexes (DTR's): Right triceps reflex intensity grade: 2+, Left triceps reflex intensity grade: 2+, Rt Biceps (C5, C6): 2+, Left biceps reflex intensity grade: 2+, Right brachioradialis reflex intensity grade: 2+, Left brachioradialis reflex intensity grade: 2+, Right patellar reflex intensity grade: 2+ and Left patellar reflex intensity grade: 2+ Coordination: [id number] test normal, tandem gait normal and Romberg test negative Pupils: Normal pupillary reactivity/response: bilateral Psych Appearance: grossly normal Mental Status: mental status grossly normal Speech and movement: Normal speech and movement present Affect: normal affect Attitude: cooperative Thought process: Normal thought process present Assessment & Plan Assessment & Plan (1) Migraine without aura: Code(s): G43.009 - Migraine without aura, not intractable, without status migrainosus Category: Medical (2) Fatigue: Code(s): R53.83 - Other fatigue Category: Medical (3) Sleep difficulties: Code(s): G47.9 - Sleep disorder, unspecified Category: Medical (4) Snoring: Code(s): R06.83 - Snoring Category: Medical (5) Excessive daytime sleepiness: Code(s): G47.19 - Other hypersomnia Category: Medical Plan Pt advised to undergo: HST to assess for sleep apnea Vitamin-D level to assess status of vitamin-D deficiency For overall headache management: * Optimize good self-care, including but not limited to maintaining a healthy diet, adequate fluid intake, adequate sleep, and engaging in regular physical activity. * Track headaches, especially after any treatment regimen changes. My[employer]se is one of many headache tracking apps. * Information shared on non-pharmacological interventions which may help to alleviate headache attack burden. * Encourage patient to increase physical activity, stretching. Offered referral for PT, however patient declines at this time. For acute headache treatment: Discussed importance of taking acute medications at the first sign of headache, however stressed importance of avoiding acute medication overuse (especially with combined headache medications). Re-trial Sumatriptan at increased dose [id number] tab, 1/2 - 1 tab (50-100mg) at onset of headache, may repeat in 2 hours. Max of 2 tabs (200mg) per 24 hours. May adjunct with OTC Tylenol 650mg q 4 hours, Ibuprofen 600mg q 6 hours, or Naproxen 440mg q 12 hrs prn. Potential adverse effects of triptans, including but not limited to nausea, fatigue, chest tightness/tingling (usually passes within a few minutes), medication overuse headaches. Previous acute migraine medication trials: Sumatriptan 25 mg ineffective Acute migraine medication contraindications: None at this time For headache prevention medication: Preventative medications should be taken routinely as prescribed for best effect, it may take several weeks for full effect to take effect. Retry Riboflavin at increased dose [id number] qam Retry Magnesium at dose of 400mg qhs Previous migraine prevention medication trials: Riboflavin 50mg qam and Magnesium 250mg bid- ineffective. Amitriptyline 10mg. Migraine prevention medication contraindications: Would avoid anti hypertensive agents due to hypotension, history of near-syncope, current lightheadedness. Pt seen in collaboration w/ Dr Meghna Strong. Pt to follow-up in 6 months or sooner prn. Orders: Orders Vitamin D 25-OH (D2 and D3) Today R53.83 - Other fatigue RT home sleep study Today G47.19 - Other hypersomnia, G47.9 - Sleep disorder, unspecified, R06.83 - Snoring, R53.83 - Other fatigue Medications: New riboflavin (vitamin B2) 400 mg PO DAILY 30 tabs 6RF 30 days sumatriptan succinate 50 - 100 mg orally at onset of headache, may repeat in 2 hrs PRN; max 2 tabs per day or 4 tabs/week (may take with Ibuprofen) 12 tabs 6RF migraine headache 30 days magnesium oxide may hold for loose stools 400 mg PO BEDTIME 30 tabs 6RF 30 days Discontinued sumatriptan succinate Discontinued Reason: Doctor's Order take 1 tab at onset of headache; if no relief may repeat 1 tab after at least 2 hrs; max = 4 tabs/24 hr PO 30 days 9 tabs 0RF G43.909 - Migraine, unspecified, not intractable, without status migrainosus magnesium oxide Discontinued Reason: Doctor's Order 250 mg PO BID 30 days 60 tabs 1RF G43.909 - Migraine, unspecified, not intractable, without status migrainosus, R51.9 - Headache, unspecified riboflavin (vitamin B2) Discontinued Reason: Doctor's Order 50 mg PO DAILY 30 days 30 tabs 3RF G43.909 - Migraine, unspecified, not intractable, without status migrainosus, R51.9 - Headache, unspecified Coding Level of Care Code New Pt Level 4 (67585) Diagnoses Migraine without aura G43.009 Fatigue R53.83 Sleep difficulties G47.9 Snoring R06.83 Excessive daytime sleepiness G47.19 [place] Sleepiness Scale Questions Sitting and reading: moderate chance of dozing Watching TV: moderate chance of dozing Sitting inactive in a theater, movie etc.: moderate chance of dozing As a passenger in a car for an hour without break: would never doze Lying down in the afternoon when circumstances permit: moderate chance of dozing Sitting and talking to someone: would never doze Sitting quietly after lunch without alcohol: moderate chance of dozing In a car, while stopped for a few minutes in the traffic: would never doze ESS < 10: normal, ESS > 12: pathologic: 10
== END 2024-01-05 09:13 | disposition home or self-care (01) ==
PROVIDERS: PCP Physician Assistant; Visit Provider Nurse Practitioner Family
DX: G43.009 Migraine without aura, not intractable, without status migrainosus (principal); R53.83 Other fatigue; G47.9 Sleep disorder, unspecified; R06.83 Snoring; G47.19 Other hypersomnia
CPT/HCPCS: 99204

== ENCOUNTER → 2024-01-05 07:52 | Outpatient (BNVA) | payer OTHER, MEDICAID, SELFPAY | PROVIDERS: PCP Physician Assistant; Visit Provider Nurse Practitioner Family ==